=== PATIENT | male | born 1960 ===

== ENCOUNTER 2024-10-13 09:47 | Outpatient (REF) | payer OTHER, SELFPAY ==
--- NOTE | ~2024-10-13 | XR_ITS ---
EXAMINATION: XR KNEE 3 VIEWS RIGHT HISTORY: M25.561 - Pain in right knee COMPARISON: There are no prior studies available for comparison. FINDINGS: Standing AP views of both knees, and additional lateral and sunrise patellar views of the right knee are submitted. Osseous mineralization is normal. There is no fracture or dislocation. There is severe osteoarthritis of the medial and patellofemoral compartments of the right knee with joint space narrowing and osteophyte formation. The patient is status post left total knee arthroplasty. The soft tissues are unremarkable. There is no joint effusion. XR/XR knee RT 3V IMPRESSION: Severe osteoarthritis of the medial and patellofemoral compartments of the right knee. Electronically signed by: Noé Jimenez MD 10/16/2024 08:48 AM CHUY
== END 2024-10-13 09:48 | disposition home or self-care (01) ==
LOC: HO.HOSX 09:47
PROVIDERS: Visit Provider Orthopaedic Surgery
DX: M25.561 Pain in right knee (principal); M17.11 Unilateral primary osteoarthritis, right knee; Z96.652 Presence of left artificial knee joint
CPT/HCPCS: 20610; 73562; 99202; J0665; J1100; J2003

== ENCOUNTER 2024-10-13 09:47 | Outpatient (AMB) | payer OTHER, SELFPAY ==
[2024-10-13 10:21] VITALS: BMI 36.0
--- NOTE | 2024-10-13 10:21 | A.OFFVIS_ITS ---
Vital Signs 10/13/24 10:21 Height 6 ft 2.5 in Weight 284 lb BMI 36.0 Intake Visit Reasons: [employer]ER-Extensive Lt Shoulder C spine degenerative Intake Note: Sergio is a 64 year old -- hand dominant male who presents today as a new patient with complaints of right knee pain. Patient rpeorts that he has had ongoing pain in the right knee for about one year now. He denies any previous treatments. He explains that his pain is felt all the time and is affecting his sleep. Pain is worsened with acitiviy. He takes Celebrex and gabapentin which is not helping Allergies No Known Allergies Allergy (Verified 10/13/24 10:24) HPI HPI [employer]ER-Extensive Lt Shoulder C spine degenerative: Details: This is a 64-year-old gentleman with bilateral knee pain. He had a left total knee replacement about 5 years ago at an outside institution. This is bothering him because it swells repeatedly. He denies fevers and chills but states the swelling is a constant bother. He said it was drained once in the past but is unclear about whether infection has been ruled out or not. His primary complaint today however is his right knee pain. He has a severe antalgic gait pain with all activities. [facility] Surgical History (Updated 10/16/24 @ 10:39 by Huan Orozco MD) History of left knee replacement (~2003) Physical Exam Vital Signs: BMI result Body Mass Index 36.0 Extrem Other: On exam he is left knee incision with a large effusion. No erythema or warmth. 0-120 degrees with the effusion. On his right he has a varus right knee with sharp tenderness to palpation over the medial compartment. No effusion. Office Procedures Joint Inj/Aspir; Non-Pain Clin Joint Injection/Drain Details: Injected right knee 1 mL of Decadron and 3 mL 1% lidocaine and 3 mL of 0.25% Marcaine. Site was prepped using aseptic technique. Patient tolerated the procedure well. I aspirated the left knee. I obtained 50 mL of normal-appearing joint fluid Shoulders, Hips, Knees, Knee Large Joint Injection [id number]: Bilateral Knee Coding Procedure code (CPT) selection complete Results Reviewed Results Reviewed: I personally reviewed relevant radiographs. Left total knee and an expected postoperative position with no evidence of loosening or hardware complications. Right knee with severe medial and patellofemoral end-stage osteoarthritis. Assessment & Plan Assessment & Plan (1) Localized osteoarthritis of right knee: Code(s): M17.11 - Unilateral primary osteoarthritis, right knee Category: Medical Plan: I injected his right knee. He had a left knee replacement many years ago and there is a persistent effusion but not any evidence of infection. I do think he would benefit from right knee arthroplasty. He is unable to ambulate and his pain is not controlled. I am not sure his diabetes is controlled either but we will work him up for preoperative risk assessment. (2) History of left knee replacement: Onset Date: ~2003 Code(s): Z96.652 - Presence of left artificial knee joint Category: Surgical Plan: I aspirated a moderate volume of normal-appearing synovial fluid from the left total knee replacement. This was sent for a Synovasure. Orders: Orders XR knee RT 3V 10/13/24 M25.561 - Pain in right knee Coding Level of Care Code New Pt Level 4 (57848) Diagnoses Localized osteoarthritis of right knee M17.11 History of left knee replacement Z96.652 CPT Codes Shoulders, Hips, Knees, - Knee Large Joint Injection : Bilateral Knee ([id number])
--- OUTSIDE RECORDS SUMMARY | 2024-10-13 10:39 | XMS_ITS ---
[facility] Address [address] [place] [address] Care Team Providers Care Building Construction Engineer Name Role Phone Brendon LAUGHLIN, Kristie Primary Care Provider John Kruger Unavailable [phone] Allergies No Known Allergies REASON FOR VISIT At Risk Footcare, Painful Nail(s) aggravated by shoes and causing difficulty standing/walking, SkinProblem Medications Medication SIG (Take, Route, Frequency, Duration) Notes Start Date End Date Status Rosuvastatin Calcium 20 MG TAKE 1 TABLET BY MOUTH EVERY DAY Oral for 90 Days Active tiZANidine HCl 4 MG Oral for 30 Days Active Ibuprofen 600 MG Oral for 8 Days Active LORazepam 0.5 MG Oral for 2 Days Active Meloxicam 15 MG Oral for 30 Days Active Meloxicam 15 MG PLEASE SEE ATTACHED FOR DETAILED DIRECTIONS Oral for 30 Days Active Trulicity 0.75 MG/0.5ML PLEASE SEE ATTAC HED FOR DETAILED DIRECTIONS Subcutaneous for 28 Days Active hydroCHLOROthiazide 25 MG TAKE 1 TAB BY MOUTH DAILY. TAKE WITH LISINOPRIL 40MG.-STOP LIS/HCTZ 20/25 Oral for 90 Days Active amLODIPine Besylate 5 MG PLEASE SEE LORENZO CHED FOR DETAILED DIRECTIONS Oral for 90 Days Active Pantoprazole Sodium 40 MG TAKE 1 TABLET BY MOUTH EVERY DAY FOR 14 DAYS Oral for 14 Days Active Albuterol Sulfate HFA 108 (9 0 Base) MCG/ACT TAKE 2 PUFFS INHALATION 4 TIMES A DAY NEEDED FOR WHEEZING SPACE PUFFS 1 MINUTE APART. Inhalation for 25 Days Active Celecoxib 100 MG Oral for 90 Days Active amLODIPine Besylate 10 MG PLEASE SEE ATT ACHED FOR DETAILED DIRECTIONS Oral for 90 Days Active FreeStyle [place] Lite w/Device for 30 Days Active Cyanocobalamin 1000 MCG/ML Injection for 28 Days Active Gabapentin 600 MG Oral for 60 Days Active Cyanocobalamin 1000 MCG/ML Injection for 7 Days Active Budesonide-Formoterol Fumara te 160-4.5 MCG/ACT INHALE 2 PUFFS BY MOUTH TWICE DAILY FOR ASTHMA CONTROL Inhalation for 30 Days Active Ondansetron HCl 4 MG Oral for 5 Days Active Celecoxib 100 MG Oral for 60 Days Active Trulicity 1.5 MG/0.5ML Subcutaneous for 28 Days Active Trulicity 0.75 MG/0.5ML Subcutaneous for 28 Days Active BD Syringe Luer-Nichole 1 ML for 28 Days Active BD Disp Needle 25G X 1 for 28 Days Active Albuterol Sulfate (2.5 MG/3M L) 0.083% Inhalation for 18 Days Activ e Lidocaine 5 % External for 20 Days Active DULoxetine HCl 30 MG Oral for 90 Days Active Ammonium Lactate 12 % External for 30 Days Active Omeprazole 20 MG Oral for 90 Days Active FreeStyle Lite Test - USE TO TEST FASTIN G BLOOD SUGAR ONCE A DAY In Vitro for 50 Days Active Omeprazole 20 MG Oral for 90 Days Active Budesonide-Formoterol Fumara te 160-4.5 MCG/ACT Inhalation for 30 Days Ac tive FreeStyle Lancets - for 90 Days Active FreeStyle Lite Test - In Vitro for 50 Days Active Lisinopril 40 MG Oral for 90 Days Active metFORMIN HCl 1000 MG Oral for 90 Days Active Rosuvastatin Calcium 20 MG Oral for 90 Days Active Aspirin Low Dose 81 MG Oral for 90 Days Active Jardiance 10 MG Oral for 90 Days Active amLODIPine Besylate 10 MG Oral for 90 Days Active hydroCHLOROthiazide 25 MG Oral for 90 Days Active hydroCHLOROthiazide 25 MG Oral for 90 Days Active Albuterol Sulfate HFA 108 (9 0 Base) MCG/ACT Inhalation for 25 Days Acti ve Amitriptyline HCl 50 MG Oral for 90 Days Active Ciclopirox Olamine 0.77 % 1 application Externally Twice a day to skin of feet including between the toes for 30 days Active Trulicity 3 MG/0.5ML Subcutaneous for 28 Days Active Social History Tobacco Use: Social History Observation Description Date Details (start date - stop date) Never Smoker NA - NA Tobacco Control (Standard) Question Answer Notes Tobacco use: Nonsmoker AUDIT-C (Standard) Question Answer Notes Did you have a drink contain ing alcohol in the past year? Yes How often did you have six o r more drinks on one occasion in the past year? Declined to specify (0 point) How many drinks did you have on a typical day when you were drinking in the past year? Declined to specify (0 point) How often did you have a dri nk containing alcohol in the past year? Declined to specify (0 point) Points 0 Interpretation Negative Problems Problem Type SNOMED Code ICD Code Onset Dates Problem Status W/U Status Risk Notes Problem Type 2 diabetes mellitus with peripheral angiopathy (526890081) Type 2 diabetes mellitus with diabetic peripheral angiopathy without gangrene (E11.51) Active confirmed Q7(A), Q8(2B), Q9(1B,2C) Vital Signs Height 6ft 2in in 07/27/2024 Weight 288 lbs 07/27/2024 BMI 36.97 kg/m2 07/27/2024 Procedures Procedure Date Ordered Date Performed Result Body Sit e 01716-[id number] NAIL, 6 OR MORE 07/27/2024 N/A [id number] SKIN LESIONS, OVER 4 07/27/2024 N/A Encounters Encounter Location Date Provider Diagnosis [facility] [address] [address] 07/27/2024 Johncodey AppleTrena Type 2 diabetes mellitus with diabetic peripheral angiopathy without gangrene E11.51 ; Tinea unguium B35.1 ; Pain in right toe(s) M79.674 ; Pain in left toe(s) M79.675 and Tinea pedis of both feet B35.3 Assessments Encounter Date Diagnosis (ICD Code) Assessment Notes Treatment Notes Treatment Clinical Notes Section Notes 07/27/2024 Type 2 diabetes mellitus with diabetic peripheral angiopathy without gangrene (ICD-10 - E11.51) Q7(A), Q8(2B), Q9(1B,2C) 07/27/2024 Tinea unguium (ICD-10 - B35.1) 07/27/2024 Pain in right toe(s) (ICD-10 - M79.674) 07/27/2024 Pain in left toe(s) (ICD-10 - M79.675) 07/27/2024 Tinea pedis of both feet (ICD-10 - B35.3) Plan Of Treatment Medication Medication Name Sig Start Date Stop Date Notes Ciclopirox Olamine 0.77 % 1 application Externally Twice a day to skin of feet including between the toes for 30 days Pending Test Test Name Order Date [id number] NAIL, 6 OR MORE 07/27/2024 [id number] SKIN LESIONS, OVER 4 07/27/20 24 Next Appt Details Follow Up: 2 Months, Reason: Provider Name:John Albrecht , 10/30/2024 01:30:00 PM, [address], [address], [place], [address], Procedure Notes * Category Sub-Category Detail Notes Debride Nail 6-10 Nail debridement Due to the cl inical pathology outlined in the exam findings, performance of this nail treatment is medically necessary as its management by an unskilled/untrained nonprofessional would put this patients foot and overall health at risk. Therefore, debridement to affected nail(s), as described in exam ( TA, T1, T3, T4, T5, T6, T9), was performed exclusively by the physician of record to reduce/remove overall nail length, girth, thickness, subungual debris, and necrotic tissue, by manual and/or electrical means through the use of a nail nipper and/or dremel-type concrete grinder operator, to a more viable healthy nail plate or bed tissue 6-10 nails in total. Silver nitrate was used for any petechial bleeding as necessary. Definitive antifungal treatment options, both pharmaceutical and surgical, have been reviewed and discussed with the patient. The patient solely prefers the use of intermittent/as needed professional debridement services for their nail condition and understands the need for additional periodic treatments to maintain effectiveness in symptomatic relief - 84603 Keratoma Treatment Parring or Cutting o f Benign Hyperkeratotic Lesion(s) (-57) More than 4 Lesions - Due to the at risk nature of the patients medical condition as documented in the exam findings, performance of this keratoderma treatment is medically necessary as its management by an unskilled/untrained nonprofessional would put this patients foot and overall health at risk. Therefore, the benign hyperkeratotic lesions, ( 10) in total, locations as stated and described in the exam ( Medial plantar, IPJ, TA, Medial plantar, IPJ, T5, SUB MTH (s), 1, B/L, SUB MTH (s), 4, B/L, SUB MTH (s), 5, B/L, Plantar Heel(s), B/L), were pared, and/or cut utilizing a sterile 15 blade, tissue nippers, and/or power dremel instrumentation by the physician of record - 80788, Q8 Progress Notes * Sergio ORDONEZDOB: [birth year] (64 yo M)Acc No.[id number]:07/27/2024 Progress Notes Patient:?Sergio ORDONEZ Provider:?John Albrecht DPM :1960???Age:64 Y???Sex:Male Andrea e:07/27/2024 Address:[address] [place] [address] Pcp:Kristie Olivas MD Subjective: * Chief Complaints: * ???At Risk FootcarePainful N ail(s) aggravated by shoes and causing difficulty standing/walkingSkin Problem * HPI: ???At Risk footcare:?Pt States Last PCP Visit:?Date?05/31/2024 ???Skin problems:?Nature:?scaling , redness.?Location:?B/L .?Duration:?several days.?Course:?worse.? * ROS:?General/Constitutional:?Nausea?denies.?Vomiting?denies.?Hunger Thirst?denies.?Loss appetite?denies.?Chills?denies.?Fatigue?denies.?Fever?denies.?Night Sweats?denies.?Unexplained weight loss?denies.?Unexplained weight gain?denies.?HEENTM:?Dentures?denies.?Dizziness?denies.?Glasses/contacts?admits.?Retinopathy?de nies.?Blurred/double vision?denies.?TMJ?denies.?Discharge/drainage?denies.?Implants?denies.?Sore throat?denies.?Dental implants?denies.?Hard of hearing ?denies.?Difficulty chewing/swallowing/speaking?denies.?Nose bleeds?denies.?Sore mouth?denies.?Respiratory:?On Oxygen?denies.?Pneumonia/pleurisy?denies.?Bronchitis?denies.?Emphysema?denies.?C oughing?denies.?Cough blood?denies.?Shortness of breath?denies.?Shortness of breath with exertion?admits.?Wheezing?denies.?Cardiovascular:?Pacemaker?denies.?MVP?denies.?WPW?denies.?CHF?denies.?Heart attack?denies.?Septal defect?denies.?Rapid beat?denies.?Chest pain ?denies.?Atrial Fib.?denies.?Murmur/Palpitations?denies.?Gastrointestinal:?Hemorrhoids?denies.?Stomach/Abdominal pain?denies.?Dark blood stool?denies.?Irritable bowel ?denies.?Constipation?denies.?Diarrhea?denies.?Hematology:?Swelling?denies.?Clots?denies.?Varicose Veins?denies.?Bruising?denies.?Bleeding problem?denies.?Genitourinary:?Blood urine?denies.?Frequent/Painfu/urination/bladder control?denies.?Kidney stones?denies.?Infection (UTI)?denies.?Nephropathy?denies.?sex trans dis (STD)?denies.?Prostate?denies.?Musculoskeletal:?Hammertoes?admits.?Bunions?denies.?Back Pain?denies.?Muscle Cramps/ Resting?denies.?Muscle cramps / walking?denies.?Generalized aches and pains?denies.?Weakness?denies.?Integ.:?[place]?denies.?Scars?denies.?Corns/calluses?admits.?Ingrown nails?admits.?Painful nails?admits.?Open Sores?denies.?Rashes?denies.?Neurologic:?Difficulty sleeping?denies.?Brain disorder?denies.?Numbness?denies.?Balance trouble?denies.?Confusion?denies.?Fainting/blackouts?denies.?Tingling?denies.?Tr emors?denies.? * Medical History:? * Surgical History:?knee repla cement 2003 * Hospitalization/Major Diagno stic Procedure:?Denies Past Hospitalization * Family History:?Mother: mayra sanchez, diagnosed with Diabetic - NIDDM.?Father: , cancer, Foot problems, poor circulation, diagnosed with Family history of arthritis, Unspecified essential hypertension, Unspecified heart disease, Unspecified cerebral artery occlusion with cerebral infarction.? * Social History:?Tobacco Use:?Tobacco Control (Standard)?Tobacco use:?Nonsmoker ???Drugs/Alcohol:?Drugs?Have you used drugs other than those for medical reasons in the past 12 months??No ???Miscellaneous:?Marital status: Single. ???Drug/Alcohol:?AUDIT-C (Standard)?Did you have a drink containing alcohol in the past year??Yes ?How often did you have six or more drinks on one occasion in the past year??Declined to specify (0 point) ?How many drinks did you have on a typical day when you were drinking in the past year??Declined to specify (0 point) ?How often did you have a drink containing alcohol in the past year??Declined to specify (0 point) ?Points?0 ?Interpretation?Negative * Medications:?TakingTrulicity 3 MG/0.5ML Solution Auto-injector Subcutaneous Albuterol Sulfate HFA 108 (90 Base) MCG/ACT Aerosol Solution Inhalation Amitriptyline HCl 50 MG Tablet Oral amLODIPine Besylate 10 MG Tablet Oral hydroCHLOROthiazide 25 MG Tablet Oral hydroCHLOROthiazide 25 MG Tablet Oral Lisinopril 40 MG Tablet Oral metFORMIN HCl 1000 MG Tablet Oral Rosuvastatin Calcium 20 MG Tablet Oral Aspirin Low Dose 81 MG Tablet Delayed Release Oral Jardiance 10 MG Tablet Oral Budesonide-Formoterol Fumarate 160-4.5 MCG/ACT Aerosol Inhalation FreeStyle Lancets - Miscellaneous FreeStyle Lite Test - Strip In Vitro FreeStyle Lite Test - Strip USE TO TEST FASTING BLOOD SUGAR ONCE A DAY In Vitro Omeprazole 20 MG Capsule Delayed Release Oral Albuterol Sulfate (2.5 MG/3ML) 0.083% Nebulization Solution Inhalation Lidocaine 5 % Ointment External DULoxetine HCl 30 MG Capsule Delayed Release Particles Oral Ammonium Lactate 12 % Cream External Omeprazole 20 MG Capsule Delayed Release Oral Trulicity 1.5 MG/0.5ML Solution Auto-injector Subcutaneous Trulicity 0.75 MG/0.5ML Solution Auto-injector Subcutaneous BD Syringe Luer-Nichole 1 ML Miscellaneous BD Disp Needle 25G X 1 Miscellaneous Celecoxib 100 MG Capsule Oral Cyanocobalamin 1000 MCG/ML Solution Injection Gabapentin 600 MG Tablet Oral Cyanocobalamin 1000 MCG/ML Solution Injection Budesonide-Formoterol Fumarate 160-4.5 MCG/ACT Aerosol INHALE 2 PUFFS BY MOUTH TWICE DAILY FOR ASTHMA CONTROL Inhalation Ondansetron HCl 4 MG Tablet Oral Pantoprazole Sodium 40 MG Tablet Delayed Release TAKE 1 TABLET BY MOUTH EVERY DAY FOR 14 DAYS Oral Albuterol Sulfate HFA 108 (90 Base) MCG/ACT Aerosol Solution TAKE 2 PUFFS INHALATION 4 TIMES A DAY NEEDED FOR WHEEZING SPACE PUFFS 1 MINUTE APART. Inhalation Celecoxib 100 MG Capsule Oral amLODIPine Besylate 10 MG Tablet PLEASE SEE ATTACHED FOR DETAILED DIRECTIONS Oral FreeStyle [place] Lite w/Device Kit Meloxicam 15 MG Tablet Oral Meloxicam 15 MG Tablet PLEASE SEE ATTACHED FOR DETAILED DIRECTIONS Oral Trulicity 0.75 MG/0.5ML Solution Auto-injector PLEASE SEE ATTACHED FOR DETAILED DIRECTIONS Subcutaneous hydroCHLOROthiazide 25 MG Tablet TAKE 1 TAB BY MOUTH DAILY. TAKE WITH LISINOPRIL 40MG.-STOP LIS/HCTZ 20/25 Oral amLODIPine Besylate 5 MG Tablet PLEASE SEE ATTACHED FOR DETAILED DIRECTIONS Oral Rosuvastatin Calcium 20 MG Tablet TAKE 1 TABLET BY MOUTH EVERY DAY Oral tiZANidine HCl 4 MG Tablet Oral Ibuprofen 600 MG Tablet Oral LORazepam 0.5 MG Tablet Oral Taking Trulicity 3 MG/0.5ML Solution Auto-injector Subcutaneous Taking Albuterol Sulfate HFA 108 (90 Base) MCG/ACT Aerosol Solution Inhalation Taking Amitriptyline HCl 50 MG Tablet Oral Taking amLODIPine Besylate 10 MG Tablet Oral Taking hydroCHLOROthiazide 25 MG Tablet Oral Taking hydroCHLOROthiazide 25 MG Tablet Oral Taking Lisinopril 40 MG Tablet Oral Taking metFORMIN HCl 1000 MG Tablet Oral Taking Rosuvastatin Calcium 20 MG Tablet Oral Taking Aspirin Low Dose 81 MG Tablet Delayed Release Oral Taking Jardiance 10 MG Tablet Oral Taking Budesonide-Formoterol Fumarate 160-4.5 MCG/ACT Aerosol Inhalation Taking FreeStyle Lancets - Miscellaneous Taking FreeStyle Lite Test - Strip In Vitro Taking FreeStyle Lite Test - Strip USE TO TEST FASTING BLOOD SUGAR ONCE A DAY In Vitro Taking Omeprazole 20 MG Capsule Delayed Release Oral Taking Albuterol Sulfate (2.5 MG/3ML) 0.083% Nebulization Solution Inhalation Taking Lidocaine 5 % Ointment External Taking DULoxetine HCl 30 MG Capsule Delayed Release Particles Oral Taking Ammonium Lactate 12 % Cream External Taking Omeprazole 20 MG Capsule Delayed Release Oral Taking Trulicity 1.5 MG/0.5ML Solution Auto-injector Subcutaneous Taking Trulicity 0.75 MG/0.5ML Solution Auto-injector Subcutaneous Taking BD Syringe Luer-Nichole 1 ML Miscellaneous Taking BD Disp Needle 25G X 1 Miscellaneous Taking Celecoxib 100 MG Capsule Oral Taking Cyanocobalamin 1000 MCG/ML Solution Injection Taking Gabapentin 600 MG Tablet Oral Taking Cyanocobalamin 1000 MCG/ML Solution Injection Taking Budesonide-Formoterol Fumarate 160-4.5 MCG/ACT Aerosol INHALE 2 PUFFS BY MOUTH TWICE DAILY FOR ASTHMA CONTROL Inhalation Taking Ondansetron HCl 4 MG Tablet Oral Taking Pantoprazole Sodium 40 MG Tablet Delayed Release TAKE 1 TABLET BY MOUTH EVERY DAY FOR 14 DAYS Oral Taking Albuterol Sulfate HFA 108 (90 Base) MCG/ACT Aerosol Solution TAKE 2 PUFFS INHALATION 4 TIMES A DAY NEEDED FOR WHEEZING SPACE PUFFS 1 MINUTE APART. Inhalation Taking Celecoxib 100 MG Capsule Oral Taking amLODIPine Besylate 10 MG Tablet PLEASE SEE ATTACHED FOR DETAILED DIRECTIONS Oral Taking FreeStyle [place] Lite w/Device Kit Taking Meloxicam 15 MG Tablet Oral Taking Meloxicam 15 MG Tablet PLEASE SEE ATTACHED FOR DETAILED DIRECTIONS Oral Taking Trulicity 0.75 MG/0.5ML Solution Auto-injector PLEASE SEE ATTACHED FOR DETAILED DIRECTIONS Subcutaneous Taking hydroCHLOROthiazide 25 MG Tablet TAKE 1 TAB BY MOUTH DAILY. TAKE WITH LISINOPRIL 40MG.-STOP LIS/HCTZ 20/25 Oral Taking amLODIPine Besylate 5 MG Tablet PLEASE SEE ATTACHED FOR DETAILED DIRECTIONS Oral Taking Rosuvastatin Calcium 20 MG Tablet TAKE 1 TABLET BY MOUTH EVERY DAY Oral Taking tiZANidine HCl 4 MG Tablet Oral Taking Ibuprofen 600 MG Tablet Oral Taking LORazepam 0.5 MG Tablet Oral DiscontinuedmetFORMIN HCl 1000 MG Tablet TAKE 1 TABLET BY MOUTH 2 TIMES A DAY FOR DIABETES WITH MEALS Oral Medication List reviewed and reconciled with the patientDiscontinued metFORMIN HCl 1000 MG Tablet TAKE 1 TABLET BY MOUTH 2 TIMES A DAY FOR DIABETES WITH MEALS Oral Medication List reviewed and reconciled with the patient * Allergies:?N.K.D.A.yes[Aller gies Verified] Objective: * Vitals:?Ht: 6ft 2in, Wt:288, BMI:36.97, Shoe size: 11.5, Ht-cm: 187.96 cm, Wt- k.63 kg. * ???Past Orders: ???Lab:HEMOGLOBIN A1C (GLYCO HEMOGLOBIN) (Order Date - 07/27/2024) (Collection Date & Time - 05/16/2024 01:07 PM) ? Value Reference Range ?TOTAL HEMOGLOBIN (HGBA1C) 8.1 * Examination: ???Ophthalmology Referral: ?DIABETES EYE EXAM?Procedure Performed:?No ?Eye Exam not performed:?No reason specified ?Diabetic Retinopathy Screening:?No ?Retinal Screening Performed:?No?Vascular: ?DP PULSES (B):?0/4, RIGHT, 1/4, LEFT.?PT PULSES (B):? 0/4, B/L.?CAPILLARY FILL TIME:? delayed, all digits, B/L.?TROPHIC CONDITION-TEXTURE/ELASTICITY/TURGOR/HAIR GROWTH (B):? decreased, fragile, thin, shiny, with sparse to absent hair growth, B/L.?TEMPERTURE GRADIENT (C):? decreased, cool to cool, proximal to distal, B/L.?PIGMENTATION:?mottled, B/L.?EDEMA (C):?2/4, non-pitting, without aching pain, Leg(s), Ankle(s), B/L.?CLAUDICATION (C):?denies, B/L.?REST PAIN:?denies, B/L.?PARESTHESIA (C):?absent, B/L.?BURNING (C):?absent, B/L.?Nails: ?NAILS are:?Elongated, overgrown, dystrophic, lytic, greater than 3mm thick, discolored and friable with crumbly malodorous subungual debris, with pain on palpation, TA, T1, T3, T4, T5, T6, T9, all other nails not described with characteristics as possessing mycosis are elongated, overgrown, and dystrophic.?Dermatologic: ?SKIN FINDINGS:?Skin exam reveals Keratotic lesion(s) located at, Medial plantar, IPJ, TA, Medial plantar, IPJ, T5, SUB MTH (s), 1, B/L, SUB MTH (s), 4, B/L, SUB MTH (s), 5, B/L, Plantar Heel(s), B/L , Skin shows sign(s) of, erythema, scaling, in a moccasin fashion, no fissure(s) present, B/L.?Orthopedic: ?MUSCLE STRENGTH:?5/5 all groups in a symmetrical fashion, B/L.?DIGITAL DEFORMITIES:?Digital contracture, PIPJ, 2-5 B/L, incompl-reducible with WB, or to push-up test, no over, nor underlapping.?FOOTWEAR:?fair condition.?Neurological: ?SENSORY:?Neurological exam reveals intact sensorium, pain sensation normal, vibration sensation intact, pinprick sensation is normal in the lower extremities, 5.07 monofilament test performed at plantar aspects of 5 varied sites per foot shows sensation, normal, B/L, Pt denies, anesthesia, burning, paresthesia, tingling, B/L.?General Examination: ?GENERAL APPEARANCE:?Reveals a pleasant, alert, well nourished, well- developed, well hydrated individual, who demonstrates proper attention to hygiene/body habitus, and is in no acute distress, Pt serves as own historian for office visit today.?ORIENTED:?person, place, and time.?FOOT EXAM:?Lower Extremity Neurological Exam performed:?Yes ?Visual exam of foot performed:?Yes ?Date?07/27/2024 ?Footwear Evaluation?Footwear Evaluation performed:?Yes??? Assessment: * Assessment: 1.?Type 2 diabetes mellitus with diabetic peripheral angiopathy without gangrene - E11.51 (Primary)???Notes :Q7(A), Q8(2B), Q9(1B,2C)???2.?Tinea unguium - B35.1???3.?Pain in right toe(s) - M79.674???4.?Pain in left toe(s) - M79.675???5.?Tinea pedis of both feet - B35.3???Specify :Acute problem, Uncomplicated (3),Rx drug management (4)??? Plan: * Treatment: 2.?Tinea unguium?Procedure: [id number] NAIL, 6 OR MORE 3.?Tinea pedis of both feet? Start Ciclopirox Olamine Cream, 0.77 %, 1 application, Externally, Twice a day to skin of feet including between the toes, 30 days, 60, Refills 2.?? * Procedures:?Debride Nail 6-10:?Nail debridement?Due to the clinical pathology outlined in the exam findings, performance of this nail treatment is medically necessary as its management by an unskilled/untrained nonprofessional would put this patients foot and overall health at risk. Therefore, debridement to affected nail(s), as described in exam (?TA,?T1,?T3,?T4,?T5,?T6,?T9), was performed exclusively by the physician of record to reduce/remove overall nail length, girth, thickness, subungual debris, and necrotic tissue, by manual and/or electrical means through the use of a nail nipper and/or dremel-type concrete grinder operator, to a more viable healthy nail plate or bed tissue 6- 10 nails in total. Silver nitrate was used for any petechial bleeding as necessary. Definitive antifungal treatment options, both pharmaceutical and surgical, have been reviewed and discussed with the patient. The patient solely prefers the use of intermittent/as needed professional debridement services for their nail condition and understands the need for additional periodic treatments to maintain effectiveness in symptomatic relief - 74639.?Keratoma Treatment:?Parring or Cutting of Benign Hyperkeratotic Lesion(s)?(-57) More than 4 Lesions - Due to the at risk nature of the patients medical condition as documented in the exam findings, performance of this keratoderma treatment is medically necessary as its management by an unskilled/untrained nonprofessional would put this patients foot and overall health at risk. Therefore, the benign hyperkeratotic lesions, ( 10) in total, locations as stated and described in the exam (?Medial plantar,?IPJ,?TA,?Medial plantar,?IPJ,?T5,?SUB MTH (s),?1,?B/L,?SUB MTH (s),?4,?B/L,?SUB MTH (s),?5,?B/L,?Plantar Heel(s),?B/L), were pared, and/or cut utilizing a sterile 15 blade, tissue nippers, and/or power dremel instrumentation by the physician of record - 23953, Q8.? * Procedure Codes:?96207 DEBRI DE NAIL, 6 OR MORE, Modifiers: XS 23553 TRIM SKIN LESIONS, OVER 4, Modifiers: XS , Q8 * Preventive Medicine:? ??Counseling:?Discussion:?-03: Office or other outpatient visit for the evaluation and management of a new patient, which required a medically appropriate history and/or examination and LOW level of DECISION MAKING for: 1 STABLE ACUTE UNCOMPLICATED PROBLEM, 2 OR MORE MINOR PROBLEMS, OR 1 STABLE CHRONIC PROBLEM, THAT POSE(S) A LOW RISK FOR MORBIDITY/MORTALITY. The visit on the day of the encounter encompassed interpreting the data and educating the patient as to the nature of their condition, treatment options available according to their individual PMH, meds, allergies, and overall health/living conditions, as well as any potential risks or complications that may occur from a failure to adhere to, and participate in, the recommended course of therapy. The discussion included a complete verbal, and/or written explanation of the examination results, any x-rays taken, the proposed diagnosis, and outline of the treatment plan. A schedule for future care needs was also explained. The patient verbalized an understanding of the instructions at this time and agreed to be an active participant in their treatment. If the patient should think of any questions or concerns after the visit, I have encouraged the patient to call the office.?Consult:?The patient was counseled on the diagnosis, treatment options, and the need for a, Vascular Consult due to pedal risk of limb/life. Pt states has an appt tomorrow.?Tinea Pedis:?The patient was counseled on the diagnosis, potential etiologies, and treatment options for their skin condition. We discussed the risks and benefits of each option from performing no treatment, to utilizing OTC topical skin creams, prescription topical creams, customized compounded topical medications, and, if necessary, to utilize oral antifungal therapy. We discussed the advantages and disadvantages of each possible treatment and importance for adherence to all the recommended therapies for optimum success and avoid potential complications such as open sore/infection/possible hospitalization. We discussed the potential effectiveness of each topical preparation as well as each ones possible side effects and/or patient medication interactions if oral therapy is selected. Patient questions re: the advantages and disadvantages of each treatment choice, medication use/dosage, successful outcomes, and application consistency were reviewed and the patient verbalized that all answers were clearly understood. The patient was told they can help alleviate symptoms by utilizing moisture absorbant innersoles with activated charcoal and baking soda, applying antifungal sprays daily, aerating toe web spaces at night by putting cotton or lambs wool between the toes, alternating shoe gear daily if possible so they can dry out, changing socks at least once during the day, wearing well-ventilated shoes or sandals. The patient has decided to apply antifungal skin creams to their feet as directed. Rx was sent to their pharmacy at the time of visit.? ??Screening/Special Tests:?Fall Risk?Screening:?No falls in the past year ?FALLS: Screening for Future Fall Risk?Have you had any falls with injury in the past year??No * Follow Up:?2 Months * Images: * Sign off status: Completed true * Provider:?John Albrecht DPM Date:?2023 Generated for Liliana marcus/Sahara/Shai on:?10/13/2024 10:39 AM EST History and Physical Notes * HPI (History of Present Illness) Category Sub-Category Detail Notes Category Not es Skin problems Nature: scaling , redness Location: B/L Duration: several days Course: worse At Risk footcare Pt States Last PCP Visit: Date: 4 Examination Category Sub-Category Detail Notes Category Not es Neurological SENSORY: Neurological exa m reveals intact sensorium, pain sensation normal, vibration sensation intact, pinprick sensation is normal in the lower extremities, 5.07 monofilament test performed at plantar aspects of 5 varied sites per foot shows sensation, normal, B/L, Pt denies, anesthesia, burning, paresthesia, tingling, B/L Dermatologic SKIN FINDINGS: Skin exam reveal s Keratotic lesion(s) located at, Medial plantar, IPJ, TA, Medial plantar, IPJ, T5, SUB MTH (s), 1, B/L, SUB MTH (s), 4, B/L, SUB MTH (s), 5, B/L, Plantar Heel(s), B/L , Skin shows sign(s) of, erythema, scaling, in a moccasin fashion, no fissure(s) present, B/L Orthopedic FOOTWEAR: fair condition DIGITAL DEFORMITIES: Digital contracture , PIPJ, 2-5 B/L, incompl-reducible with WB, or to push-up test, no over, nor underlapping MUSCLE STRENGTH: 5/5 all groups in a symmetrical fashion, B/L General Examination GENERAL APPEARANCE: Reveals a pleasant, alert, well nourished, well-developed, well hydrated individual, who demonstrates proper attention to hygiene/body habitus, and is in no acute distress, Pt serves as own historian for office visit today FOOT EXAM: Lower Extremity Neurological Exa m performed:: Yes Visual exam of foot performed:: Yes Date: 07/27/2024 ORIENTED: person, place, and t jd Footwear Evaluation Footwear Evaluation performe d:: Yes Ophthalmology Referral DIABETES EYE EXAM Procedure Perform ed:: No Eye Exam not performed:: No reason speci fied Diabetic Retinopathy Screening:: No Retinal Screening Performed:: No Vascular DP PULSES (B): 0/4, RIGHT, 1/4, LEFT PT PULSES (B): 0/4, B/L CAPILLARY FILL TIME: delayed, all digits , B/L TEMPERTURE GRADIENT (C): decreased, cool to cool, proximal to distal, B/L TROPHIC CONDITION-TEXTURE/ELASTICITY/TURGOR/HAIR GROWTH (B): decreased, fragile, thin, shiny, with sp arse to absent hair growth, B/L EDEMA (C): 2/4, non-pitting, wi thout aching pain, Leg(s), Ankle(s), B/L CLAUDICATION (C): denies, B/L REST PAIN: denies, B/L PIGMENTATION: mottled, B/L PARESTHESIA (C): absent, B/L BURNING (C): absent, B/L Nails NAILS are: Elongated, overg rown, dystrophic, lytic, greater than 3mm thick, discolored and friable with crumbly malodorous subungual debris, with pain on palpation, TA, T1, T3, T4, T5, T6, T9, all other nails not described with characteristics as possessing mycosis are elongated, overgrown, and dystrophic
--- OUTSIDE RECORDS SUMMARY | 2024-10-13 10:39 | XMS_ITS | Patient Health Record ---
Author Organization [facility] Address [address] [facility] [place] [address] Care Team Providers Care Silhouette Artist Name Role Phone Brendon LAUGHLIN, Kristie Primary Care Provider John Kruger Unavailable [phone] Allergies No Known Allergies Results Component Value Reference Range Notes HEMOGLOBIN A1C (GLYCOHEMOGLO BIN) Reviewed date:07/27/2024 01:08:54 PM Interpretation: Performing Lab: Notes/Report: TOTAL HEMOGLOBIN (HGBA1C) 8.1 Reason For Referral No Information Medications Medication SIG (Take, Route, Frequency, Duration) Notes Start Date End Date Status FreeStyle Lite Test - USE TO TEST FASTIN G BLOOD SUGAR ONCE A DAY In Vitro for 50 Days Active Meloxicam 15 MG Oral for 30 Days Active Omeprazole 20 MG Oral for 90 Days Active Meloxicam 15 MG PLEASE SEE ATTACHED FOR DETAILED DIRECTIONS Oral for 30 Days Active Albuterol Sulfate (2.5 MG/3M L) 0.083% Inhalation for 18 Days Activ e Trulicity 0.75 MG/0.5ML PLEASE SEE ATTAC HED FOR DETAILED DIRECTIONS Subcutaneous for 28 Days Active Lidocaine 5 % External for 20 Days Active hydroCHLOROthiazide 25 MG TAKE 1 TAB BY MOUTH DAILY. TAKE WITH LISINOPRIL 40MG.-STOP LIS/HCTZ 20/25 Oral for 90 Days Active DULoxetine HCl 30 MG Oral for 90 Days Active amLODIPine Besylate 5 MG PLEASE SEE LORENZO CHED FOR DETAILED DIRECTIONS Oral for 90 Days Active Ammonium Lactate 12 % External for 30 Days Active Rosuvastatin Calcium 20 MG TAKE 1 TABLET BY MOUTH EVERY DAY Oral for 90 Days Active Omeprazole 20 MG Oral for 90 Days Active Trulicity 1.5 MG/0.5ML Subcutaneous for 28 Days Active Ciclopirox Olamine 0.77 % 1 application Externally Twice a day to skin of feet including between the toes for 30 days Active Trulicity 3 MG/0.5ML Subcutaneous for 28 Days Active Albuterol Sulfate HFA 108 (9 0 Base) MCG/ACT Inhalation for 25 Days Acti ve tiZANidine HCl 4 MG Oral for 30 Days Active Ibuprofen 600 MG Oral for 8 Days Active Trulicity 0.75 MG/0.5ML Subcutaneous for 28 Days Active LORazepam 0.5 MG Oral for 2 Days Active BD Syringe Luer-Nichole 1 ML for 28 Days Active Amitriptyline HCl 50 MG Oral for 90 Days Active BD Disp Needle 25G X 1 for 28 Days Active amLODIPine Besylate 10 MG Oral for 90 Days Active Celecoxib 100 MG Oral for 60 Days Active hydroCHLOROthiazide 25 MG Oral for 90 Days Active Cyanocobalamin 1000 MCG/ML Injection for 28 Days Active hydroCHLOROthiazide 25 MG Oral for 90 Days Active Gabapentin 600 MG Oral for 60 Days Active Lisinopril 40 MG Oral for 90 Days Active Cyanocobalamin 1000 MCG/ML Injection for 7 Days Active metFORMIN HCl 1000 MG Oral for 90 Days Active Budesonide-Formoterol Fumara te 160-4.5 MCG/ACT INHALE 2 PUFFS BY MOUTH TWICE DAILY FOR ASTHMA CONTROL Inhalation for 30 Days Active Rosuvastatin Calcium 20 MG Oral for 90 Days Active Ondansetron HCl 4 MG Oral for 5 Days Active Aspirin Low Dose 81 MG Oral for 90 Days Active Pantoprazole Sodium 40 MG TAKE 1 TABLET BY MOUTH EVERY DAY FOR 14 DAYS Oral for 14 Days Active Jardiance 10 MG Oral for 90 Days Active Budesonide-Formoterol Fumara te 160-4.5 MCG/ACT Inhalation for 30 Days Ac tive Albuterol Sulfate HFA 108 (9 0 Base) MCG/ACT TAKE 2 PUFFS INHALATION 4 TIMES A DAY NEEDED FOR WHEEZING SPACE PUFFS 1 MINUTE APART. Inhalation for 25 Days Active Celecoxib 100 MG Oral for 90 Days Active FreeStyle Lancets - for 90 Days Active amLODIPine Besylate 10 MG PLEASE SEE ATT ACHED FOR DETAILED DIRECTIONS Oral for 90 Days Active FreeStyle Lite Test - In Vitro for 50 Days Active FreeStyle [place] Lite w/Device for 30 Days Active Social History Tobacco Use: Social [...] Type 2 diabetes mellitus with peripheral angiopathy (261243964) Type 2 diabetes mellitus with diabetic peripheral angiopathy without gangrene (E11.51) Active confirmed Q7(A), Q8(2B), Q9(1B,2C) Vital Signs Height 6ft 2in in 07/27/2024 Weight 288 lbs 07/27/2024 BMI 36.97 kg/m2 07/27/2024 Procedures Procedure Date Ordered Date Performed Result Body Sit e 03434-[id number] NAIL, 6 OR MORE 07/27/2024 N/A [id number] SKIN LESIONS, OVER 4 07/27/2024 N/A Encounters Encounter Location Date Provider Diagnosis [facility] [address] [address] 07/27/2024 John Albrecht Type 2 diabetes mellitus with diabetic peripheral [...] feet (ICD-10 - B35.3) Plan Of Treatment Pending Test Test Name Order Date [id number] NAIL, 6 OR MORE 07/27/2024 [id number] SKIN LESIONS, OVER 4 07/27/20 24 Next Appt Details Provider Name:John Albrecht , 10/30/2024 01:30:00 PM, [address], [address], [place], [address], Insurance Providers Payer Name Payer Address Payer Phone Subscriber Number Group Number Insured Name Patient Relationship to Insured Coverage Start Date Coverage End Date [facility] [employer] Claims [address] [place] [id number] Sergio Ordonez Self - patient is the insured Medical (General) History Medical History History ICD Code Arthritis Back,Hip,and Knee pain Diabetic High Blood Pressure Chicken pox Surgical History Surgery Date(Month/Year) knee replacement 2003
== END 2024-10-13 12:23 | disposition home or self-care (01) ==
PROVIDERS: Visit Provider Orthopaedic Surgery
DX: M17.11 Unilateral primary osteoarthritis, right knee (principal); Z96.652 Presence of left artificial knee joint
CPT/HCPCS: 20610; 99204

== ENCOUNTER → 2024-10-13 10:47 | Outpatient (BNV) | payer OTHER, SELFPAY | PROVIDERS: Visit Provider Radiology Diagnostic Radiology | DX: M17.11 Unilateral primary osteoarthritis, right knee (principal) | CPT/HCPCS: 73562 ==

== ENCOUNTER 2025-06-11 14:07 | Outpatient (AMB) | payer OTHER, SELFPAY ==
--- OUTSIDE RECORDS SUMMARY | 2024-10-30 09:30 | XMS_ITS ---
Author Organization [facility] Address [address] [facility] [place] [address] Care Team Providers Care Coremaker Bench Name Role Phone Brendon LAUGHLIN, Kristie Primary Care Provider John Kruger Unavailable [phone] Medications Medication SIG (Take, Route, Frequency, Duration) Notes Start Date End Date Status Ciclopirox Olamine 0.77 % 1 application Externally Twice a day to skin of feet including between the toes; Duration: 30 days Active LORazepam 0.5 MG Oral; Duration: 2 Days Active Ibuprofen 600 MG Oral; Duration: 8 Days Active tiZANidine HCl 4 MG Oral; Duration: 30 Days Active Rosuvastatin Calcium 20 MG TAKE 1 TABLET BY MOUTH EVERY DAY Oral; Duration: 90 Days Active hydroCHLOROthiazide 25 MG TAKE 1 TAB BY MOUTH DAILY. TAKE WITH LISINOPRIL 40MG.-STOP LIS/HCTZ 20/25 Oral; Duration: 90 Days Active Trulicity 0.75 MG/0.5ML PLEASE SEE ATTAC HED FOR DETAILED DIRECTIONS Subcutaneous; Duration: 28 Days Active Meloxicam 15 MG PLEASE SEE ATTACHED FOR DETAILED DIRECTIONS Oral; Duration: 30 Days Active Meloxicam 15 MG Oral; Duration: 30 Days Active amLODIPine Besylate 5 MG PLEASE SEE LORENZO CHED FOR DETAILED DIRECTIONS Oral; Duration: 90 Days Active FreeStyle [place] Lite w/Device ; Duration: 30 Days Active amLODIPine Besylate 10 MG PLEASE SEE ATT ACHED FOR DETAILED DIRECTIONS Oral; Duration: 90 Days Active Celecoxib 100 MG Oral; Duration: 90 Days Active Albuterol Sulfate HFA 108 (9 0 Base) MCG/ACT TAKE 2 PUFFS INHALATION 4 TIMES A DAY NEEDED FOR WHEEZING SPACE PUFFS 1 MINUTE APART. Inhalation; Duration: 25 Days Active Pantoprazole Sodium 40 MG TAKE 1 TABLET BY MOUTH EVERY DAY FOR 14 DAYS Oral; Duration: 14 Days Active Cyanocobalamin 1000 MCG/ML Injection; Du ration: 7 Days Active Gabapentin 600 MG Oral; Duration: 60 Days Active Cyanocobalamin 1000 MCG/ML Injection; Du ration: 28 Days Active Ondansetron HCl 4 MG Oral; Duration: 5 Days Active Budesonide-Formoterol Fumara te 160-4.5 MCG/ACT INHALE 2 PUFFS BY MOUTH TWICE DAILY FOR ASTHMA CONTROL Inhalation; Duration: 30 Days Active Celecoxib 100 MG Oral; Duration: 60 Days Active BD Disp Needle 25G X 1 ; Duration: 28 Days Active BD Syringe Luer-Nichole 1 ML ; Duration: 28 Days Active Trulicity 0.75 MG/0.5ML Subcutaneous; Duration: 28 Days Active Trulicity 1.5 MG/0.5ML Subcutaneous; Duration: 28 Days Active Lidocaine 5 % External; Duration: 20 Days Active Albuterol Sulfate (2.5 MG/3M L) 0.083% Inhalation; Duration: 18 Days Active Omeprazole 20 MG Oral; Duration: 90 Days Active Ammonium Lactate 12 % External; Duration : 30 Days Active DULoxetine HCl 30 MG Oral; Duration: 90 Days Active Omeprazole 20 MG Oral; Duration: 90 Days Active FreeStyle Lite Test - USE TO TEST FASTIN G BLOOD SUGAR ONCE A DAY In Vitro; Duration: 50 Days Active FreeStyle Lite Test - In Vitro; Duration : 50 Days Active FreeStyle Lancets - ; Duration: 90 Days Active Budesonide-Formoterol Fumara te 160-4.5 MCG/ACT Inhalation; Duration: 30 Days Active Lisinopril 40 MG Oral; Duration: 90 Days Active Jardiance 10 MG Oral; Duration: 90 Days Active Aspirin Low Dose 81 MG Oral; Duration: 9 0 Days Active Rosuvastatin Calcium 20 MG Oral; Duratio n: 90 Days Active metFORMIN HCl 1000 MG Oral; Duration: 90 Days Active hydroCHLOROthiazide 25 MG Oral; Duration : 90 Days Active hydroCHLOROthiazide 25 MG Oral; Duration : 90 Days Active amLODIPine Besylate 10 MG Oral; Duration : 90 Days Active Amitriptyline HCl 50 MG Oral; Duration: 90 Days Active Albuterol Sulfate HFA 108 (9 0 Base) MCG/ACT Inhalation; Duration: 25 Days Active Trulicity 3 MG/0.5ML Subcutaneous; Duration: 28 Days Active Encounters Encounter Location Date Provider Diagnosis [facility] [address] [facility] [address] [place] [address] 10/30/2024 John Albrecht Plan Of Treatment No Information Progress Notes * Sergio HANSENDOB: [birth year] (64 yo M)Acc No.[id number]:10/30/2024 Progress Note Patient: Sergio CONTEH Provider: Betty Albrecht DPM :1960 A ge:64 Y S ex:Male Date:10/30/2024 Address:[address] [place] [address], [address], [facility] Pcp:Kristie Olivas MD Subjective: * Chief Complaints: * * Medical History: * Medications: T aking Trulicity 3 MG/0.5ML Solution Auto-injector Subcutaneous , Taking Albuterol Sulfate HFA 108 (90 Base) MCG/ACT Aerosol Solution Inhalation , Taking Amitriptyline HCl 50 MG Tablet Oral , Taking amLODIPine Besylate 10 MG Tablet Oral , Taking hydroCHLOROthiazide 25 MG Tablet Oral , Taking hydroCHLOROthiazide 25 MG Tablet Oral , Taking Lisinopril 40 MG Tablet Oral , Taking metFORMIN HCl 1000 MG Tablet Oral , Taking Rosuvastatin Calcium 20 MG Tablet Oral , Taking Aspirin Low Dose 81 MG Tablet Delayed Release Oral , Taking Jardiance 10 MG Tablet Oral , Taking Budesonide-Formoterol Fumarate 160-4.5 MCG/ACT Aerosol Inhalation , Taking FreeStyle Lancets - Miscellaneous , Taking FreeStyle Lite Test - Strip In Vitro , Taking FreeStyle Lite Test - Strip USE TO TEST FASTING BLOOD SUGAR ONCE A DAY In Vitro , Taking Omeprazole 20 MG Capsule Delayed Release Oral , Taking Albuterol Sulfate (2.5 MG/3ML) 0.083% Nebulization Solution Inhalation , Taking Lidocaine 5 % Ointment External , Taking DULoxetine HCl 30 MG Capsule Delayed Release Particles Oral , Taking Ammonium Lactate 12 % Cream External , Taking Omeprazole 20 MG Capsule Delayed Release Oral , Taking Trulicity 1.5 MG/0.5ML Solution Auto-injector Subcutaneous , Taking Trulicity 0.75 MG/0.5ML Solution Auto-injector Subcutaneous , Taking BD Syringe Luer-Nichole 1 ML Miscellaneous , Taking BD Disp Needle 25G X 1 Miscellaneous , Taking Celecoxib 100 MG Capsule Oral , Taking Cyanocobalamin 1000 MCG/ML Solution Injection , Taking Gabapentin 600 MG Tablet Oral , Taking Cyanocobalamin 1000 MCG/ML Solution Injection , Taking Budesonide-Formoterol Fumarate 160-4.5 MCG/ACT Aerosol INHALE 2 PUFFS BY MOUTH TWICE DAILY FOR ASTHMA CONTROL Inhalation , Taking Ondansetron HCl 4 MG Tablet Oral , Taking Pantoprazole Sodium 40 MG Tablet Delayed Release TAKE 1 TABLET BY MOUTH EVERY DAY FOR 14 DAYS Oral , Taking Albuterol Sulfate HFA 108 (90 Base) MCG/ACT Aerosol Solution TAKE 2 PUFFS INHALATION 4 TIMES A DAY NEEDED FOR WHEEZING SPACE PUFFS 1 MINUTE APART. Inhalation , Taking Celecoxib 100 MG Capsule Oral , Taking amLODIPine Besylate 10 MG Tablet PLEASE SEE ATTACHED FOR DETAILED DIRECTIONS Oral , Taking [employer] [place] [employer] [place] Lite w/Device Kit , Taking Meloxicam 15 MG Tablet Oral , Taking Meloxicam 15 MG Tablet PLEASE SEE ATTACHED FOR DETAILED DIRECTIONS Oral , Taking Trulicity 0.75 MG/0.5ML Solution Auto-injector PLEASE SEE ATTACHED FOR DETAILED DIRECTIONS Subcutaneous , Taking hydroCHLOROthiazide 25 MG Tablet TAKE 1 TAB BY MOUTH DAILY. TAKE WITH LISINOPRIL 40MG.-STOP LIS/HCTZ 20/25 Oral , Taking amLODIPine Besylate 5 MG Tablet PLEASE SEE ATTACHED FOR DETAILED DIRECTIONS Oral , Taking Rosuvastatin Calcium 20 MG Tablet TAKE 1 TABLET BY MOUTH EVERY DAY Oral , Taking tiZANidine HCl 4 MG Tablet Oral , Taking Ibuprofen 600 MG Tablet Oral , Taking LORazepam 0.5 MG Tablet Oral , Taking Ciclopirox Olamine 0.77 % Cream 1 application Externally Twice a day to skin of feet including between the toes Objective: * Vitals: Assessment: Plan: * Treatment: * Images: * The named appointment provid er may or may not be the originator of this progress note, and it is not deemed complete until electronically signed by the appointment provider. Sign off status: Pending * Provider: Betty Albrecht DPM Date: 0 10/30/2024 Generated for Liliana marcus/Keith on: 05:45 PM EDT
--- NOTE | 2025-06-11 14:09 | MHC.OFFVIS ---
Intake Visit Reasons: OV - Discuss Right TKA Intake Note: Sergio is a 64 year old male who presents today for a follow up of his Right Knee OA, to discuss possible TKA. Patient cancelled his previously scheduled Right TKA. Allergies No Known Allergies Allergy (Verified 06/11/25 14:10) HPI HPI OV - Discuss Right TKA: Details: This is a 62-year-old gentleman who comes in today for follow up for right knee osteoarthritis. He has severe right knee osteoarthritis. He had a left knee replacement at outside institution and had some difficulty with swelling and pain postoperatively but has been stable and doing well. He states he had it aspirated at the institution which was performed but that was negative and he has had no problems in the last 6 months. Currently he he continues to have difficulty with his right knee. He walks with a limp. He states pain bothers him constantly decrease the quality of his life. I injected his knee about 8 months ago which was helpful for a few months. [facility] Surgical History (Updated 10/16/24 @ 10:39 by Huan Orozco MD) History of left knee replacement (~2003) Physical Exam Const General: cooperative, healthy appearing, no acute distress, well developed and alert HEENT Head: Yes normal to inspection, Yes normocephalic and Yes atraumatic Mouth: moist mucous membranes Eyes General: appearance normal, both eyes and all related structures EOM: EOMs intact bilaterally Chest Other: no audible wheezing. Resp Other: No audible wheezing Effort & Inspection: normal respiratory effort Cardio Other: Radial pulse palpable with no rythmic abnormalities Back/Spine/Pelvis Cervical Spine: normal cervical lordosis Skin General skin exam: no rashes or lesions noted Neuro General: no focal motor deficits Extrem Other: Right knee with marked tenderness to palpation medial joint line. Varus malalignment. Positive gait antalgia. 7-125 degrees of motion Psych Appearance: grossly normal and well kempt Mental Status: mental status grossly normal Speech and movement: Normal speech and movement present Affect: normal affect Attitude: cooperative Assessment & Plan Assessment & Plan (1) Localized osteoarthritis of right knee: Code(s): M17.11 - Unilateral primary osteoarthritis, right knee Category: Medical Plan: This is a 64-year-old gentleman with severe osteoarthritis of the right knee. He walks with a limp. He can not get through his day without severe pain. He does not sleep well. He is diabetic but states his sugars are well controlled. We have discussed arthroplasty in the past and he has gone so far as the scheduled but had to cancel it because of personal reasons. He would like to reschedule his knee replacement surgery. I think, from an orthopedic standpoint, this is reasonable. Obviously we have to clarify his hemoglobin A1c but he is on what are now in losing weight and appears healthy. I did discuss knee replacement surgery. Particularly I discussed the risks of infection, fracture, need for further surgery, stiffness as well as medical complications associated with surgery such as blood clots, organ dysfunction and he expressed understanding. I answered his questions to the best of my abilities. We will proceed forward with scheduling and preoperative clearance. Coding Level of Care Code Est Pt Level 4 (65391) Diagnoses Localized osteoarthritis of right knee M17.11
--- OUTSIDE RECORDS SUMMARY | 2025-06-11 17:46 | XMS_ITS | Clinical Summary ---
Author Organization [facility] Address [address] [place] [address] Phone Care Team Providers Care Motion Graphics Designer Name Role Phone Kristie Olivas MD Primary Care Provider [phone] Allergies No known active allergies Medications albuterol 2.5 mg /3 mL (0.083 %) nebulizer solution Take 3 mL (2.5 mg total) by nebulization every 6 (six) hours if needed for wheezing or shortness of breath. Active amitriptyline (ELAVIL) 50 mg tablet Take 1 tablet (50 mg total) by mouth at bedtime. 4 Active amLODIPine (NORVASC) 10 mg tablet Take 1 tablet (10 mg total) by mouth 1 (one) time each day. 4 Active aspirin 81 mg EC tablet Take 1 tablet (81 mg total) by mouth at bedtime. 5 Active cyanocobalamin (VITAMIN B-12) 1,000 mcg/mL injection 1 mL (1,000 mcg total). 5 Active DULoxetine (CYMBALTA) [address] capsule Take 1 capsule (30 mg total) by mouth 1 (one) time each day. 5 Active empagliflozin (JARDIANCE) 10 mg tablet Take 1 tablet (10 mg total) by mouth 1 (one) time each day in the morning. 4 Active hydroCHLOROthia zide (HYDRODIURIL) 25 mg tablet Take 1 tablet (25 mg total) by mouth 1 (one) time each day. 4 Active lisinopril (PRINIVIL,ZESTR IL) 40 mg tablet Take 1 tablet (40 mg total) by mouth 1 (one) time each day. 4 Active metFORMIN (GLUCOPHAGE) 1,000 mg tablet Take 1 tablet (1,000 mg total) by mouth 2 (two) times a day with meals. 4 Active omeprazole (PriLOSEC) [address] capsule Take 1 capsule (20 mg total) by mouth 1 (one) time each day. 5 Active rosuvastatin (CRESTOR) 20 mg tablet Take 1 tablet (20 mg total) by mouth 1 (one) time each day. 4 Active Mounjaro 2.5 mg/0.5 mL injection Inject 0.5 mL (2.5 mg total) under the skin every 7 (seven) days. TAKE ON Tuesdays 5 Active gabapentin (NEURONTIN) 300 mg capsuleIndicati ons:neuropathic pain Take 2 capsules (600 mg total) by mouth 2 (two) times a day if needed (MODERATE PAIN). Active albuterol HFA (PROAIR HFA ; PROVENTIL HFA ; VENTOLIN HFA) 90 mcg/actuation inhaler Inhale 2 puffs by mouth every 4 (four) hours if needed for wheezing or shortness of breath. 6.7 g 5 Active budesonide-form oteroL (SYMBICORT) 160-4.5 mcg/actuation inhaler Inhale 2 puffs by mouth 2 (two) times a day. 5 Active ipratropium (ATROVENT) 21 mcg (0.03 %) nasal spray Administer 1 spray into affected nostril(s) at bedtime. 5 Active Active Problems Problem Noted Date Diagnosed Date Acute hypoxic respiratory fa ilure ([facility] V24, [facility] V28) 04/02/2025 Acute hypoxemic respiratory failure ([facility] V24, [facility] V28) 11/29/2024 Encounters Date Type Department Care Team Description 04/02/2025 11:04 AM EDT - 04/04/2025 5:03 PM EDT Hospital Encounter [facility] [address] [place] [address] Patricia Gaspar MD Kela, Kashyap Devendrabhai, MD Acute hypoxic respiratory failure ([facility] [place]24, [facility] V28) (Primary Dx); Shortness of breath; Acute hypercapnic respiratory failure ([facility] V24, [facility] V28); Exacerbation of asthma, unspecified asthma severity, unspecified whether persistent Discharge Disposition: Home or Self Care 03/31/2025 9:25 PM EDT - 03/31/2025 9:58 PM EDT Emergency [facility] Emergency [address] [place] [address] Pneumonia of right lower lobe due to infectious organism (Primary Dx) Discharge Disposition: Home or Self Care from Last 3 Months Medical History Medical History Date Comments Hypertension Diabetes mellitus ([facility] V24, [facility] V28) Asthma Social History Tobacco Use Types Packs/Day Years Used Date Smoking Tobacco: Former Cigarettes Smokeless Tobacco: Never Tobacco Cessation:Counseling Given: Not Answered Interpersonal Safety Answer Date Record ed Physical Abuse Unrecognized value 04/02/2025 Verbal Abuse Unrecognized value 04/02/2025 Sex and Gender Information Value Date Recorded Sex Assigned at Male 10/26/2024 8:05 AM EDT Legal Sex Male 3:09 PM EST Gender Identity Male 10/26/2024 8:05 AM EDT Sexual Orientation Straight 10/26/2024 8: 05 AM EDT Obstetrics History Last Filed Vital Signs Vital Sign Reading Time Taken Comments Blood Pressure 148/87 04/04/2025 12:03 PM EDT Pulse 55 04/04/2025 12:03 PM EDT Temperature 36.2 C (97.2 F) 04/04/2025 12:03 PM EDT Respiratory Rate 17 04/04/2025 12:03 PM EDT Oxygen Saturation 96% 04/04/2025 12:03 PM EDT Inhaled Oxygen Concentration - - Weight 129 kg (285 lb) 04/02/2025 11:00 AM EDT Height 190.5 cm (6' 3 ) 04/02/2025 11:00 AM EDT Body Mass Index 35.62 04/02/2025 11:00 AM EDT Plan of Treatment Health Maintenance Due Date Last Done Comments Colorectal Cancer Screening: Colonoscopy 1962 Diabetes: Annual Foot Exam 1972 Diabetes: Annual Retina Eye Exam 1972 RSV Immunization Adult Patients (1 - Risk 50-74 years 1-dose series) 2012 Zoster Vaccines (1 of 2) 2012 Cholesterol Screening (Lipid Panel) 07/15/2022 HIV Screening 07/15/2022 Hepatitis C Screening 07/15/2022 Medicare Annual Wellness Visit 07/15/2022 Social Influencers of Health Screening 07/15/2022 Depression Screening 08/16/2024 Diabetes: Annual Urine Albumin-Creatinine Ratio (uACR) 10/26/2024 Diabetes: Blood Sugar Control Test (HGBA1C) 10/26/2024 COVID-19 Vaccine ( season) 2025 09/08/2023, 08/05/2021, 11/27/2020, Additional history exists Influenza Vaccine (#1) 2025 , 06/10/2022, 05/25/2018, Additional history exists Diabetes: Annual GFR (Glomerular Filtration Rate) 04/04/2026 04/04/2025, 04/03/2025, 04/02/2025, Additional history exists Hypertension/CHF/CAD Annual BMP Blood Test 04/04/2026 04/04/2025, 04/03/2025, 04/02/2025, Additional history exists DTaP,Tdap,and Td Vaccines (3 - Td or Tdap) 06/22/2029 06/22/2019, 08/21/2009 Pneumococcal Vaccine: 50+ Years Completed 09/08/2023, 11/24/2011 HIB Vaccines Aged Out No longer eligi ble based on patient's age to complete this topic HPV Vaccines Aged Out No longer eligi ble based on patient's age to complete this topic Hepatitis A Vaccines Aged Out No long er eligible based on patient's age to complete this topic Hepatitis B Vaccines Aged Out No long er eligible based on patient's age to complete this topic IPV Vaccines Aged Out No longer eligi ble based on patient's age to complete this topic MMR Vaccines Aged Out No longer eligi ble based on patient's age to complete this topic Meningococcal ACWY Vaccine Aged Out N o longer eligible based on patient's age to complete this topic Meningococcal B Vaccine Aged Out No l onger eligible based on patient's age to complete this topic RSV Immunization Patients Under 20 months Aged Out No longer eligible based on patient's age to complete this topic Varicella Vaccines Aged Out No longer eligible based on patient's age to complete this topic Procedures Procedure Name Priority Date/Time Associated Diagnosis Comments POCT GLUCOSE BLOOD Routine 04/04/2025 12 :03 PM EDT POCT GLUCOSE BLOOD Routine 04/04/2025 8: 32 AM EDT MAGNESIUM Routine 04/04/2025 5:59 AM EDT BASIC METABOLIC PANEL Routine 04/04/2025 5:59 AM EDT COMPLETE BLOOD COUNT Routine 04/04/2025 5:59 AM EDT PHOSPHORUS Routine 04/04/2025 5:59 AM EDT POCT GLUCOSE BLOOD Routine 04/04/2025 4: 03 AM EDT POCT GLUCOSE BLOOD Routine 04/04/2025 12 :11 AM EDT POCT GLUCOSE BLOOD Routine 04/03/2025 10 :24 PM EDT POCT GLUCOSE BLOOD Routine 04/03/2025 8: 38 PM EDT POCT GLUCOSE BLOOD Routine 04/03/2025 3: 34 PM EDT POCT GLUCOSE BLOOD Routine 04/03/2025 12 :00 PM EDT VENOUS BLOOD GAS Timed 04/03/2025 8:22 AM EDT POCT GLUCOSE BLOOD Routine 04/03/2025 8: 03 AM EDT STREPTOCOCCUS PNEUMONIAE ANTIBODIES, IGG, 23 SEROTYPES Routine 04/03/2025 4:03 AM EDT COMPLETE BLOOD COUNT Routine 04/03/2025 4:03 AM EDT BASIC METABOLIC PANEL Routine 04/03/2025 4:03 AM EDT VENOUS BLOOD GAS Timed 04/03/2025 4:03 AM EDT ECG ANNOTATED 04/03/2025 VENOUS BLOOD GAS Timed 04/02/2025 11:5 0 PM EDT POCT GLUCOSE BLOOD Routine 04/02/2025 10 :11 PM EDT VENOUS BLOOD GAS Timed 04/02/2025 7:57 PM EDT DUMONT URINE CULTURE TUBE Routine 04/02/2025 5:14 PM EDT URINALYSIS WITH REFLEX MICROSCOPIC AND CULTURE Routine 04/02/2025 5:14 PM EDT URINALYSIS WITH REFLEX MICROSCOPIC AND CULTURE Routine 04/02/2025 5:14 PM EDT POCT GLUCOSE BLOOD Routine 04/02/2025 4: 36 PM EDT VENOUS BLOOD GAS Timed 04/02/2025 3:00 PM EDT B-TYPE NATRIURETIC PEPTIDE STAT 04/02/2025 3:00 PM EDT LEGIONELLA ANTIGEN URINE, EIA STAT 04/02/2025 3:00 PM EDT CULTURE BLOOD STAT 04/02/2025 3:00 PM EDT CULTURE BLOOD STAT 04/02/2025 3:00 PM EDT PEP THERAPY Routine 04/02/2025 2:03 PM EDT PEP THERAPY Routine 04/02/2025 2:[address] ANGIO CHEST WO AND/OR W CONTRAST STAT 04/02/2025 12:34 PM EDT Shortness of breath LACTATE, WITH REFLEX STAT 04/02/2025 12:02 PM EDT RESPIRATORY VIRUS PANEL MOLECULAR STUDY STAT 04/02/2025 12:02 PM EDT ECG 12-LEAD STAT 04/02/2025 11:37 AM EDT PROCALCITONIN STAT Add-on 04/02/2025 11:31 AM EDT CBC WITH AUTO DIFFERENTIAL STAT 04/02/2025 11:31 AM EDT VENOUS BLOOD GAS STAT 04/02/2025 11:3 1 AM EDT CBC AND DIFFERENTIAL STAT 04/02/2025 11:31 AM EDT BASIC METABOLIC PANEL STAT 04/02/2025 11:31 AM EDT MAGNESIUM STAT 04/02/2025 11:31 AM EDT TROPONIN I HIGH SENSITIVITY STAT 04/02/2025 11:31 AM EDT ECG ANNOTATED 04/02/2025 XR CHEST 2 VIEWS STAT 03/31/2025 8:38 PM EDT CBC WITH AUTO DIFFERENTIAL STAT 03/31/2025 5:56 PM EDT B-TYPE NATRIURETIC PEPTIDE STAT 03/31/2025 5:56 PM EDT BASIC METABOLIC PANEL STAT 03/31/2025 5:56 PM EDT CBC AND DIFFERENTIAL STAT 03/31/2025 5:56 PM EDT ECG 12-LEAD STAT 03/31/2025 5:45 PM EDT from Last 3 Months Results * (ABNORMAL) POCT Glucose, blood (04/04/2025 12:03 PM EDT) Only the most recent of11 resultswithin the time period is included. [facility] Glucose POCT 263(H) 70 - 100 mg/dL 04/04/2025 12:04 PM EDT [facility] Blood Capillary blood specimen / Unknown 04/04/2025 12:03 PM EDT 04/04/2025 12:05 PM EDT Cholo Conde MD LAB POINT O F CARE TEST DOCKED DEVICE UNSOLICITED RESULTS Final Result [facility] [address] [place] [address], * (ABNORMAL) Complete blood count (04/04/2025 5:59 AM EDT) Only the most recent of2 resultswithin the time period is included. [facility] WBC 10.7 4.8 - 10.8 K/mcL LAB HEMETOLOGY METHOD 04/04/2025 6:50 AM EDT [facility] RBC 4.90 4.50 - 5.50 M/mcL LAB HEMETOLOGY METHOD 04/04/2025 6:50 AM EDT [facility] Hemoglobin 14.2 13.5 - 17.5 g/dL LAB HEMETOLOGY METHOD 04/04/2025 6:50 AM EDT [facility] Hematocrit 44.2 42.0 - 54.0 % LAB HEMETOLOGY METHOD 04/04/2025 6:50 AM EDT [facility] MCV 90.9 79.0 - 98.0 FL LAB HEMETOLOGY METHOD 04/04/2025 6:50 AM EDT [facility] MCH 29.2 27.0 - 32.0 pcg LAB HEMETOLOGY METHOD 04/04/2025 6:50 AM EDT [facility] MCHC 32.1 32.0 - 37.0 g/dL LAB HEMETOLOGY METHOD 04/04/2025 6:50 AM EDT [facility] RDW 12.7 11.0 - 15.0 % LAB HEMETOLOGY METHOD 04/04/2025 6:50 AM EDT [facility] Platelets 229 130 - 400 K/mcL LAB HEMETOLOGY METHOD 04/04/2025 6:50 AM EDT [facility] MPV 11.4(H) 7.0 - 11.0 FL LAB HEMETOLOGY METHOD 04/04/2025 6:50 AM EDT [facility] NRBC 0.0 <1.0 % LAB HEMETOLOGY METHOD 04/04/2025 6:50 AM EDT [facility] NRBC Absolute 0.00 <0.10 K/mcL LAB HEMETOLOGY METHOD 04/04/2025 6:50 AM EDT [facility] Blood Venous blood specimen / Unknown Venipuncture / Unknown 04/04/2025 5:59 AM EDT 04/04/2025 6:21 AM EDT Cholo Conde MD LAB BLOOD ORDERABLE S Final Result [facility] [address] [place] [address], * (ABNORMAL) Phosphorus (04/04/2025 5:59 AM EDT) [facility] Signature Phosphorus 5.5(H) 2.5 - 4.5 mg/dL LAB CHEMISTRY METHOD 04/04/2025 7:48 AM EDT [facility] Blood Venous blood specimen / Unknown Venipuncture / Unknown 04/04/2025 5:59 AM EDT 04/04/2025 6:21 AM EDT us Cholo Conde MD LAB BLOOD ORDERABLE S Final Result Performing Organization Address City/[facility]/ZIP Co de Phone Number [facility] [address] [place] [address], [place] [phone] * Magnesium (04/04/2025 5:59 AM EDT) Only the most recent of2 resultswithin the time period is included. [facility] Magnesium 2.2 1.9 - 2.6 mg/dL LAB CHEMISTRY METHOD 04/04/2025 7:48 AM EDT [facility] Blood Venous blood specimen / Unknown Venipuncture / Unknown 04/04/2025 5:59 AM EDT 04/04/2025 6:21 AM EDT us Cholo Conde MD LAB BLOOD ORDERABLE S Final Result Performing Organization Address [facility]/ZIP Co de Phone Number [facility] [address] [place] [address], [place] [phone] * (ABNORMAL) Basic metabolic panel (04/04/2025 5:59 AM EDT) Only the most recent of4 resultswithin the time period is included. [facility] Sodium 136 133 - 145 mmol/L LAB CHEMISTRY METHOD 04/04/2025 7:50 AM EDT [facility] Potassium 4.6 3.5 - 5.5 mmol/L LAB CHEMISTRY METHOD 04/04/2025 7:50 AM EDT [facility] Chloride 100 96 - 110 mmol/L LAB CHEMISTRY METHOD 04/04/2025 7:50 AM EDT [facility] CO2 34(H) 21 - 32 mmol/L LAB CHEMISTRY METHOD 04/04/2025 7:50 AM EDT [facility] Anion Gap 2(L) 3 - 11 LAB CHEMISTRY METHOD 04/04/2025 7:50 AM EDT [facility] Glucose 216(H) 70 - 100 mg/dL LAB CHEMISTRY METHOD 04/04/2025 7:50 AM EDT [facility] BUN 29(H) 5 - 25 mg/dL LAB CHEMISTRY METHOD 04/04/2025 7:50 AM EDT [facility] Creatinine 1.05 0.70 - 1.30 mg/dL LAB CHEMISTRY METHOD 04/04/2025 7:50 AM EDT [facility] eGFR 80 >=60 mL/min/1. 73m2 LAB CHEMISTRY METHOD 04/04/2025 7:50 AM EDT [facility] Comment:Calculation based on the Chronic Kidney Disease Epidemiology Collaboration (CKD-EPI) equation refit without adjustment for race. BUN/Creatinine Ratio 27.6 LAB CHEMISTRY METHOD 04/04/2025 7:50 AM EDT [facility] Calcium 8.8 8.5 - 10.5 mg/dL LAB CHEMISTRY METHOD 04/04/2025 7:50 AM T [facility] Blood Venous blood specimen / Unknown Venipuncture / Unknown 04/04/2025 5:59 AM EDT 04/04/2025 6:21 AM EDT Cholo Conde MD LAB BLOOD ORDERABLE S Final Result [facility] [address] [place] [address], * (ABNORMAL) Venous blood gas (04/03/2025 8:22 AM EDT) Only the most recent of6 resultswithin the time period is included. pH, Nura 7.40 7.32 - 7.42 pH 04/03/2025 8:31 AM EDT [facility] pCO2, Nura 50 41 - 51 mmHg 04/03/2025 8:31 AM EDT [facility] pO2, Nura 58(H) 25 - 40 mmHg 04/03/2025 8:31 AM EDT [facility] HCO3, Venous 28.4(H) 22.0 - 26.0 mmol/L 04/03/2025 8:31 AM EDT [facility] O2 Sat, Nura 92.1 % 04/03/2025 8:31 AM EDT [facility] Base Excess, Nura 4.8(H) -2.0 - 2.0 mmol/L 04/03/2025 8:31 AM EDT [facility] Blood Venous blood specimen / Unknown Venipuncture / Unknown 04/03/2025 8:22 AM EDT 04/03/2025 8:26 AM EDT Sweta Paul WATER RESOURCE MANAGER LAB BLOOD ORDERABLES Fin al Result [facility] [address] [place] [address], * Streptococcus pneumoniae antibodies, IgG, 23 serotypes (04/03/2025 4:03 AM EDT) Serotype 1 (1) 0.7 >=1.0 mcg/mL 04/10/2025 11:08 AM EDT [facility] Serotype 2 (2) 0.3 >=1.0 mcg/mL 04/10/2025 11:08 AM EDT [facility] Serotype 3 (3) 0.1 >=1.0 mcg/mL 04/10/2025 11:08 AM EDT [facility] Serotype 4 (4) 0.1 >=1.0 mcg/mL 04/10/2025 11:08 AM EDT [facility] Serotype 5 (5) <0.1 >=1.0 mcg/mL 04/10/2025 11:08 AM EDT [facility] Serotype 8 (8) 1.6 >=1.0 mcg/mL 04/10/2025 11:08 AM EDT [facility] Serotype 9 (9N) 0.2 >=1.0 mcg/mL 04/10/2025 11:08 AM EDT [facility] Serotype 12F (12) 0.1 >=1.0 mcg/mL 04/10/2025 11:08 AM EDT [facility] Serotype 14 (14) 18.5 >=1.0 mcg/mL 04/10/2025 11:08 AM EDT [facility] Serotype 17 (17F) 0.3 >=1.0 mcg/mL 04/10/2025 11:08 AM EDT [facility] Serotype 19 (19F) 1.0 >=1.0 mcg/mL 04/10/2025 11:08 AM EDT [facility] Serotype 20 (20) 0.5 >=1.0 mcg/mL 04/10/2025 11:08 AM EDT [facility] Serotype 22F (22) 0.3 >=1.0 mcg/mL 04/10/2025 11:08 AM EDT [facility] Serotype 23 (23F) 0.6 >=1.0 mcg/mL 04/10/2025 11:08 AM EDT [facility] Serotype 6B 1.9 >=1.0 mcg/mL 04/10/2025 11:08 AM EDT [facility] Serotype 10A 0.6 >=1.0 mcg/mL 04/10/2025 11:08 AM EDT [facility] Serotype 11A 0.6 >=1.0 mcg/mL 04/10/2025 11:08 AM EDT [facility] Serotype 7F 0.3 >=1.0 mcg/mL 04/10/2025 11:08 AM EDT [facility] Serotype 15B 2.1 >=1.0 mcg/mL 04/10/2025 11:08 AM EDT [facility] Serotype 18C 0.5 >=1.0 mcg/mL 04/10/2025 11:08 AM EDT [facility] Serotype 19A SEE BELOW >=1.0 mcg/mL 04/10/2025 11:08 AM EDT [facility] Comment: No result available due to non-linear dilution response for this serotype. See Interpretation. Serotype 9V 1.5 >=1.0 mcg/mL 04/10/2025 11:08 AM EDT [facility] Serotype 33F 1.0 >=1.0 mcg/mL 04/10/2025 11:08 AM EDT [facility] Interpretation SEE BELOW 04/10/2025 11:08 AM EDT [facility] Comment: Unable to quantitate serotype 19A (57) due to nonlinear dilution response of patient sample. Overall interpretation of pneumococcal antibody serology panel can be based on the reported 22 serotypes. Evaluation of the immune response following pneumococcal vaccination can be assessed by measuring serotype-specific Streptococcus pneumonia IgG antibodies. Either of the following conditions is consistent with a normal response to Streptococcus pneumonia vaccination: 1. When comparing pre and post-vaccination samples, antibody concentrations increased by at least 2-fold for either >50% of serotypes in children <6 years of age or >70% of serotypes for individuals >6 years of age. 2. In either a pre- or post-vaccination sample, antibody concentrations >=1.0 mcg/mL for either >50% of serotypes for children <6 years of age or >70% of serotypes for individuals >6 years of age. Results >=1.0 mcg/mL or those showing a >=2-fold change are consistent with an immune response, but are not necessarily sufficient to provide protection against infection. ADDITIONAL INFORMATION This test was developed and its performance characteristics determined by [facility] in a manner consistent with CLIA requirements. This test has not been cleared or approved by the U.S. Food and Drug Administration. Test Performed by: [facility] - [address] Clerk: Amelia Crane Ph.D.; CLIA# [id number] Blood Venous blood specimen / Unknown Venipuncture / Unknown 04/03/2025 4:03 AM EDT 04/03/2025 4:09 AM EDT us Sweta Paul WATER RESOURCE MANAGER LAB BLOOD ORDERABLES Fin al Result [facility] [address] [place] [address] * ECG-Annotated (04/03/2025) Only the most recent of2 resultswithin the time period is included. us Provider Onbase MD ECG ORDERABLES Final Result * (ABNORMAL) Urinalysis with reflex microscopic and culture (04/02/2025 5:14 PM EDT) Specific [place] Urine >1.045(H) 1.003 - 1.030 LAB URINALYSIS - AUTOMATED METHOD 04/02/2025 6:11 PM [facility] pH, Urine 5.5 5.0 - 8.0 pH LAB URINALYSIS - AUTOMATED METHOD 04/02/2025 6:11 PM [facility] Leukocytes, Urine Negative Negative LAB URINALYSIS - AUTOMATED METHOD 04/02/2025 6:11 PM [facility] Nitrite, Urine Negative Negative LAB URINALYSIS - AUTOMATED METHOD 04/02/2025 6:11 PM [facility] Protein, Urine 30(A) <=Trace mg/dL LAB URINALYSIS - AUTOMATED METHOD 04/02/2025 6:11 PM [facility] Glucose, Urine >=1000(A) Negative mg/dL LAB URINALYSIS - AUTOMATED METHOD 04/02/2025 6:11 PM [facility] Ketones, Urine Negative Negative mg/dL LAB URINALYSIS - AUTOMATED METHOD 04/02/2025 6:11 PM [facility] Urobilinogen , Urine 0.2 0.2 - 1.0 mg/dL LAB URINALYSIS - AUTOMATED METHOD 04/02/2025 6:11 PM [facility] Bilirubin, Urine Negative Negative LAB URINALYSIS - AUTOMATED METHOD 04/02/2025 6:11 PM [facility] Blood, Urine Negative Negative LAB URINALYSIS - AUTOMATED METHOD 04/02/2025 6:11 PM [facility] RBC, Urine 1.1 0 - 4 /HPF LAB URINALYSIS - AUTOMATED METHOD 04/02/2025 6:11 PM EDT [facility] WBC, Urine 0.3 0 - 4 /HPF LAB URINALYSIS - AUTOMATED METHOD 04/02/2025 6:11 PM EDT [facility] Squamous Epithelial, Urine 3 0 - 60 /LPF LAB URINALYSIS - AUTOMATED METHOD 04/02/2025 6:11 PM EDT [facility] Bacteria, Urine Negative Negative /HPF LAB URINALYSIS - AUTOMATED METHOD 04/02/2025 6:11 PM EDT [facility] Hyaline Casts, Urine 0.0 0 - 3 /LPF LAB URINALYSIS - AUTOMATED METHOD 04/02/2025 6:11 PM EDT [facility] Urine Urine specimen obtained by clean catch procedure / Unknown Non-blood Collection / Unknown 04/02/2025 5:14 PM EDT 04/02/2025 6:00 PM EDT us Sweta Paul WATER RESOURCE MANAGER LAB URINE ORDERABLES Fin al Result Performing Organization Address City/[facility]/ZIP Co de Phone Number [facility] [address] [place] [address], [place] [phone] * Dumont urine culture tube (04/02/2025 5:14 PM EDT) Extra Tube Hold for add-ons. 04/02/2025 7:01 PM EDT [facility] Comment:Auto resulted. Urine Urine specimen obtained by clean catch procedure / Unknown Non-blood Collection / Unknown 04/02/2025 5:14 PM EDT 04/02/2025 6:00 PM EDT Swetaajit Castror WATER RESOURCE MANAGER LAB URINE ORDERABLES Fin al Result Performing Organization Address City/[facility]/ZIP Co de Phone Number [facility] [address] [place] [address], [place] [phone] * Legionella antigen urine, EIA (04/02/2025 3:00 PM EDT) Legionella Antigen, Ur Negative Negative 04/02/2025 4:23 PM EDT [facility] Urine Urine specimen from urethra / Unknown Non-blood Collection / Unknown 04/02/2025 3:00 PM EDT 04/02/2025 3:06 PM EDT Narrative [facility] - 04/02/2025 4:23 PM EDT Negative for Legionella pneumophilia serogroup 1 antigen. This presumptive result suggests no current or recent infection due to L. pneumophilia serogroup 1. Culture is recommended if Legionella infection is till suspected, as other serogroups and species of Legionella are not detected by this test. Sweta Paul NP LAB URINE ORDERABLES Fin al Result [facility] [address] [place] [address], [place] [phone] * Culture blood (04/02/2025 3:00 PM EDT) Only the most recent of2 resultswithin the time period is included. Pathologist [facility] Culture, Blood No growth at 5 days 04/07/2025 4:01 PM EDT [facility] Blood Venous blood specimen / Unknown Venipuncture / Unknown 04/02/2025 3:00 PM EDT 04/02/2025 3:06 PM EDT us Sweta Paul NP LAB MICROBIOLOGY - GENER AL ORDERABLES Final Result [facility] [address] [place] [address], [place] [phone] * B-type natriuretic peptide (04/02/2025 3:00 PM EDT) Only the most recent of2 resultswithin the time period is included. BNP 59 <=100 pcg/mL LAB CHEMISTRY METHOD 04/02/2025 4:51 PM EDT [facility] Blood Venous blood specimen / Unknown Venipuncture / Unknown 04/02/2025 3:00 PM EDT 04/02/2025 3:05 PM EDT us Sweta Paul WATER RESOURCE MANAGER LAB BLOOD ORDERABLES Fin al Result [facility] [address] [place] [address], [place] [phone] * CT Angio Chest wo and/or w Contrast (04/02/2025 12:34 PM EDT) Anatomical Region Laterality Modality Body Computed Tomogra phy 04/02/2025 12:5 9 PM EDT Impressions 04/02/2025 1:05 PM EDT Suboptimal contrast bolus; given this limitation, no visible pulmonary embolism. Mild diffuse bronchial wall thickening, similar to the previous study. Stable bilateral pulmonary nodules. -------- FINAL REPORT -------- Dictated By: Matthew Anaya Dictated Date: 04/02/2025 12:59 ET Assigned Physician: Matthew Anaya Reviewed and Electronically Signed By: Matthew Anaya Signed Date: 04/02/2025 13:05 ET Workstation ID: [id number] Transcribed By: Self Edit Transcribed Date: 04/02/2025 12:59 ET Narrative 04/02/2025 1:05 PM EDT PROCEDURE: CT pulmonary angiogram. HISTORY: Chest pain, nonspecific SOB, CP, hypoxia. TECHNIQUE: CT of the chest with intravenous contrast administration with pulmonary angiogram protocol. Coronal and sagittal reformats and MIP reconstructions were created. Dose length product: 1765 mGy-cm. Contrast dose: 90 mL ISOVUE-370. COMPARISON: 11/29/2024. FINDINGS: LUNGS/PLEURA: Mild diffuse bronchial wall thickening, similar to the previous study. Normal caliber airways. Stable scattered small bilateral pulmonary nodules. The largest are a 6 mm nodule at the right base, series 7, image 232, and a 7 mm left lower lobe nodule on image 281. No pleural effusion or pneumothorax. There are a few thin pleural calcifications on the right. MEDIASTINUM/CIARRA: No mass or lymphadenopathy. VASCULATURE: Normal caliber pulmonary arteries. Suboptimal contrast bolus, but given this limitation, no visible pulmonary embolism. Mild atherosclerotic calcifications of the great vessels. CARDIAC: Normal heart size. Moderate coronary artery calcification. CHEST WALL: No axillary or supraclavicular lymphadenopathy. LIMITED ABDOMEN: Solitary calcified granuloma in the right hepatic lobe. BONES: Mild degenerative changes of the spine with findings of DISH. Procedure Note Matthew Anaya MD - 04/02/2025 PROCEDURE: CT pulmonary angiogram. HISTORY: Chest pain, nonspecific SOB, CP, hypoxia. TECHNIQUE: CT of the chest with intravenous contrast administration withpulmonary angiogram protocol. Coronal and sagittal reformats and MIPreconstructions were created. Dose length product: 1765 mGy-cm. Contrast dose: 90 mL ISOVUE-370. COMPARISON: 11/29/2024. FINDINGS: LUNGS/PLEURA: Mild diffuse bronchial wall thickening, similar to theprevious study. Normal caliber airways. Stable scattered small bilateralpulmonary nodules. The largest are a 6 mm nodule at the right base,series 7, image 232, and a 7 mm left lower lobe nodule on image 281. Nopleural effusion or pneumothorax. There are a few thin pleuralcalcifications on the right. MEDIASTINUM/CIARRA: No mass or lymphadenopathy. VASCULATURE: Normal caliber pulmonary arteries. Suboptimal contrastbolus, but given this limitation, no visible pulmonary embolism. Mildatherosclerotic calcifications of the great vessels. CARDIAC: Normal heart size. Moderate coronary artery calcification. CHEST WALL: No axillary or supraclavicular lymphadenopathy. LIMITED ABDOMEN: Solitary calcified granuloma in the right hepatic lobe. BONES: Mild degenerative changes of the spine with findings of DISH. IMPRESSION: Suboptimal contrast bolus; given this limitation, no visible pulmonaryembolism. Mild diffuse bronchial wall thickening, similar to the previous study. Stable bilateral pulmonary nodules. -------- FINAL REPORT -------- Dictated By: Matthew Anaya Dictated Date: 04/02/2025 12:59 ET Assigned Physician: Matthew Anaya Reviewed and Electronically Signed By: Matthew Anaya Signed Date: 04/02/2025 13:05 ET Workstation ID: [id number] Transcribed By: Self Edit Transcribed Date: 04/02/2025 12:59 ET Val Santana WATER RESOURCE MANAGER IMG CT PROCEDURES Final Result * Lactate, with Reflex (04/02/2025 12:02 PM EDT) [facility] LACTIC ACID 1.6 0.4 - 2.0 mmol/L LAB CHEMISTRY METHOD 04/02/2025 12:56 PM EDT [facility] Blood Venous blood specimen / Unknown Venipuncture / Unknown 04/02/2025 12:02 PM EDT 04/02/2025 12:06 PM EDT Val Santana WATER RESOURCE MANAGER LAB BLOOD ORDERABLES Final Resu lt [facility] [address] [place] [address], [place] [phone] * Respiratory virus panel molecular study (04/02/2025 12:02 PM EDT) [facility] Adenovirus Detection by PCR Not Detected Not Detected LAB MICROBIOLOGY METHOD 04/02/2025 1:06 PM EDT [facility] Influenza A PCR Not Detected Not Detected LAB MICROBIOLOGY METHOD 04/02/2025 1:06 PM EDT [facility] Influenza B PCR Not Detected Not Detected LAB MICROBIOLOGY METHOD 04/02/2025 1:06 PM EDT [facility] Coronavirus 229E Not Detected Not Detected LAB MICROBIOLOGY METHOD 04/02/2025 1:06 PM EDT [facility] Coronavirus HKU1 Not Detected Not Detected LAB MICROBIOLOGY METHOD 04/02/2025 1:06 PM EDT [facility] Coronavirus OC43 Not Detected Not Detected LAB MICROBIOLOGY METHOD 04/02/2025 1:06 PM EDT [facility] Coronavirus NL63 Not Detected Not Detected LAB MICROBIOLOGY METHOD 04/02/2025 1:06 PM EDT [facility] Parainfluenza Virus 1 Not Detected Not Detected LAB MICROBIOLOGY METHOD 04/02/2025 1:06 PM EDT [facility] Parainfluenza Virus 2 Not Detected Not Detected LAB MICROBIOLOGY METHOD 04/02/2025 1:06 PM EDT [facility] Parainfluenza Virus 3 Not Detected Not Detected LAB MICROBIOLOGY METHOD 04/02/2025 1:06 PM EDT [facility] Parainfluenza Virus 4 Not Detected Not Detected LAB MICROBIOLOGY METHOD 04/02/2025 1:06 PM EDT [facility] RSV PCR Not Detected Not Detected LAB MICROBIOLOGY METHOD 04/02/2025 1:06 PM EDT [facility] Human Metapneumovirus A and B Not Detected Not Detected LAB MICROBIOLOGY METHOD 04/02/2025 1:06 PM EDT [facility] Rhinovirus/Entero virus Not Detected Not Detected LAB MICROBIOLOGY METHOD 04/02/2025 1:06 PM EDT [facility] Bordetella pertussis Not Detected Not Detected LAB MICROBIOLOGY METHOD 04/02/2025 1:06 PM EDT [facility] Bordetella parapertussis Not Detected Not Detected LAB MICROBIOLOGY METHOD 04/02/2025 1:06 PM EDT [facility] Mycoplasma pneumo by PCR Not Detected Not Detected LAB MICROBIOLOGY METHOD 04/02/2025 1:06 PM EDT [facility] Chlamydia pneumoniae Not Detected Not Detected LAB MICROBIOLOGY METHOD 04/02/2025 1:06 PM EDT [facility] SARS COV-2 Not Detected Not Detected LAB MICROBIOLOGY METHOD 04/02/2025 1:06 PM EDT [facility] Swab Both anterior nares / Unknown Non-blood Collection / Unknown 04/02/2025 12:02 PM EDT 04/02/2025 12:07 PM EDT Narrative [facility] - 04/02/2025 1:06 PM EDT Testing was performed using the picsell Respiratory Pathogen PCR Assay. All results must be correlated with the clinical findings. Results should not be used as the sole basis for diagnosis. False Negative results may occur from the presence of sequence variants in the region targeted by the assay or the presence of inhibitors. Results may be affected by concurrent antiviral/antimicrobial therapy or levels of organisms that are below the limit of detection. Val Santana WATER RESOURCE MANAGER LAB MICROBIOLOGY - GENERAL ORDE RABLES Final Result Performing Organization Address City/[facility]/ZIP Co de Phone Number [facility] [address] [place] [address], [place] [phone] * 12-Lead ECG (04/02/2025 11:37 AM EDT) Only the most recent of2 resultswithin the time period is included. [facility] Ventricular Rate ECG 99 BPM GEMUSE Atrial Rate 99 BPM GEMUSE P-R Interval 150 ms GEMUSE QRS Duration 76 ms GEMUSE Q-T Interval 352 ms GEMUSE QTc 451 ms GEMUSE P Wave Holmen 35 degrees GEMUSE R Holmen 59 degrees GEMUSE T Holmen 88 degrees GEMUSE ECG Interpretation Normal sinus rhythm with sinus arrhythmia Nonspecific ST and T wave abnormality Abnormal ECG When compared with ECG of 31-MAR-2025 17:45, No significant change was found Confirmed by LARRY MENDOZA ([id number]) on 04/03/2025 1:23:24 PM GEMUSE 04/02/2025 11:3 7 AM EDT 04/03/2025 1:23 PM EDT Val Santana ECG ORDERABLES Final Result GEMUSE * Troponin I High Sensitivity (04/02/2025 11:31 AM EDT) [facility] High Sensitivity Troponin I 31 <=79 ng/L LAB CHEMISTRY METHOD 04/02/2025 12:22 PM EDT [facility] Blood Venous blood specimen / Unknown Venipuncture / Unknown 04/02/2025 11:31 AM EDT 04/02/2025 11:46 AM EDT Narrative [facility] - 04/02/2025 12:22 PM EDT High levels of biotin in samples may falsely decrease hsTroponin values. Use caution when interpreting hsTroponin results in patients taking biotin who exhibit renal impairment (eGFR <60) or in patients taking more than 20 mg/day of biotin. us Val Santana NP LAB BLOOD ORDERABLES Final Resu lt [facility] [address] [place] [address], * Procalcitonin (04/02/2025 11:31 AM EDT) Procalcitonin 0.05 <=0.16 ng/mL LAB CHEMISTRY METHOD 04/02/2025 2:43 PM EDT [facility] Blood Venous blood specimen / Unknown Venipuncture / Unknown 04/02/2025 11:31 AM EDT 04/02/2025 11:46 AM EDT Narrative [facility] - 04/02/2025 2:43 PM EDT Procalcitonin > 2.00 ng/ml: Procalcitonin Levels above 2.00 ng/ml, on the first day of ICU admission represent a high risk for progression to severe sepsis and/or septic shock. Procalcitonin < 0.50 ng/ml: Procalcitonin levels below 0.50 ng/ml on the first day of ICU admission represent a low risk for progression to severe sepsis and/or septic shock. Concentrations <0.5 ng/mL do not exclude an infection, on account of local ized infections (without systemic signs) which can be associated with such low concentrations, or a systemic infection in its initial stages (<6 hours). Furthermore, increased procalcitonin can occur without infection. PCT concentrations between 0.5 and 2.0 ng/mL should be interpreted taking into account the patient's history. It is recommended to retest PCT within 6-24 hours if any concentrations <2.0 ng/mL are obtained. us Sweta Blanco Oscar Paul NP LAB BLOOD ORDERABLES Fin al Result [facility] [address] [place] [address], * (ABNORMAL) CBC auto differential (04/02/2025 11:31 AM EDT) Only the most recent of2 resultswithin the time period is included. WBC 5.5 4.8 - 10.8 K/mcL LAB HEMETOLOGY METHOD 04/02/2025 12:24 PM EDT [facility] RBC 5.30 4.50 - 5.50 M/mcL LAB HEMETOLOGY METHOD 04/02/2025 12:24 PM EDT [facility] Hemoglobin 15.6 13.5 - 17.5 g/dL LAB HEMETOLOGY METHOD 04/02/2025 12:24 PM EDT [facility] Hematocrit 49.9 42.0 - 54.0 % LAB HEMETOLOGY METHOD 04/02/2025 12:24 PM EDT [facility] MCV 93.4 79.0 - 98.0 FL LAB HEMETOLOGY METHOD 04/02/2025 12:24 PM EDT [facility] MCH 29.2 27.0 - 32.0 pcg LAB HEMETOLOGY METHOD 04/02/2025 12:24 PM EDT [facility] MCHC 31.3(L) 32.0 - 37.0 g/dL LAB HEMETOLOGY METHOD 04/02/2025 12:24 PM EDT [facility] RDW 12.7 11.0 - 15.0 % LAB HEMETOLOGY METHOD 04/02/2025 12:24 PM EDT [facility] Platelets 212 130 - 400 K/mcL LAB HEMETOLOGY METHOD [facility]/02[facility]2025 [facility] MPV 11.6(H) 7.0 - 11.0 FL LAB HEMETOLOGY METHOD 04/02/2025 12:[facility] NRBC 0.0 <1.0 % LAB HEMETOLOGY METHOD 04/02/2025 12:[facility] NRBC Absolute 0.00 <0.10 K/mcL LAB HEMETOLOGY METHOD 04/02/2025 12:[facility] Neutrophils Relative 52.1 % LAB HEMETOLOGY METHOD 04/02/2025 12:24 PM [facility] Lymphocytes Relative 27.7 % LAB HEMETOLOGY METHOD 04/02/2025 12:24 PM [facility] Monocytes Relative 9.9 % LAB HEMETOLOGY METHOD 04/02/2025 12:24 PM [facility] Eosinophils Relative 9.2 % LAB HEMETOLOGY METHOD 04/02/2025 12:24 PM [facility] Basophils Relative 0.9 % LAB HEMETOLOGY METHOD 04/02/2025 12:24 PM [facility] Immature Granulocytes Relative 0.2 % LAB HEMETOLOGY METHOD 04/02/2025 12:24 PM [facility] Neutrophils Absolute 2.84 1.50 - 7.00 K/mcL LAB HEMETOLOGY METHOD 04/02/2025 12:24 PM [facility] Lymphocytes Absolute 1.51 1.00 - 5.00 K/mcL LAB HEMETOLOGY METHOD 04/02/2025 12:24 PM [facility] Monocytes Absolute 0.54 0.20 - 1.00 K/mcL LAB HEMETOLOGY METHOD 04/02/2025 12:24 PM EDT [facility] Eosinophils Absolute 0.50 0.00 - 0.50 K/mcL LAB HEMETOLOGY METHOD 04/02/2025 12:24 PM EDT [facility] Basophils Absolute 0.05 0.00 - 0.20 K/mcL LAB HEMETOLOGY METHOD 04/02/2025 12:24 PM EDT [facility] Immature Granulocytes Absolute 0.01 0.00 - 0.03 K/[facility] LAB HEMETOLOGY METHOD 04/02/2025 12:24 PM EDT [facility] Blood Venous blood specimen / Unknown Venipuncture / Unknown 04/02/2025 11:31 AM EDT 04/02/2025 11:46 AM EDT Val Santana WATER RESOURCE MANAGER LAB BLOOD ORDERABLES Final Resu lt [facility] [address] [place] [address], [place] [phone] * XR Chest 2 Views (03/31/2025 8:38 PM EDT) Anatomical Region Laterality Modality Body Radiographic Chiquis ging 04/01/2025 9:25 AM EDT Impressions 04/01/2025 9:27 AM EDT Impression: 1. Stable cardiomegaly. 2. Mild bibasilar subsegmental atelectasis or scar. Telerad PA ([id number]) -------- FINAL REPORT -------- Dictated By: Mercedes Frazier Dictated Date: 04/01/2025 09:25 ET Assigned Physician: Mercedes Frazier Reviewed and Electronically Signed By: Mercedes Frazier Signed Date: 04/01/2025 09:27 ET Workstation ID: [id number] Transcribed By: Self Edit Transcribed Date: 04/01/2025 09:25 ET Narrative 04/01/2025 9:27 AM EDT History: Dyspnea. Comparison: 11/29/24, 12/03/22, thoracic CT 11/29/24 Findings: PA and lateral views. The cardiac silhouette remains enlarged. Hilar contours and pulmonary vascularity are within normal limits. There is minimal streaky parenchymal opacity in both lower lungs, suggesting subsegmental atelectasis or scar. The costophrenic angles are sharp. Thoracic vertebral endplate spurring is noted. Procedure Note Mercedes Frazier MD - 04/01/2025 History: Dyspnea. Comparison: 11/29/24, 12/03/22, thoracic CT 11/29/24 Findings: PA and lateral views. The cardiac silhouette remains enlarged. Hilarcontours and pulmonary vascularity are within normal limits. There isminimal streaky parenchymal opacity in both lower lungs, suggestingsubsegmental atelectasis or scar. The costophrenic angles are sharp. Thoracic vertebral endplate spurring is noted. IMPRESSION: Impression: 1. Stable cardiomegaly. 2. Mild bibasilar subsegmental atelectasis or scar. Telerad ROMINA ([id number]) -------- FINAL REPORT -------- Dictated By: Mercedes Frazier Dictated Date: 04/01/2025 09:25 ET Assigned Physician: Mercedes Frazier Reviewed and Electronically Signed By: Mercedes Frazier Signed Date: 04/01/2025 09:27 ET Workstation ID: [id number] Transcribed By: Self Edit Transcribed Date: 04/01/2025 09:25 ET [place] [facility] IMG XR PROCEDURES Final R esult from Last [address] [place] [address] [address] [place] [address] MEDICARE Member Subscriber Plan / Payer (Ef fective 2024-Present) Name:SERGIO HANSEN Relation to Subscriber:Self Name:Sergio Sarah Payer ID:[id number] Group ID:[id number] Type:Not on file Address: [facility] [address] [id number] Advance Directives Documents on File Type Date Recorded Patient Dental Sales Representative Expl anation Advance Directives and Living Will 04/02/2025 2:30 PM Gina Joanne Weinstein Health Care Proxy * Full Code - Confirmed (Latest Code Status on File) Date Activated Date Inactivated Comments 04/02/2025 2:03 PM 04/04/2025 7:[address] atus was ascertained in the following way: Code status discussion: discussion with patient To update the patient's code status, place a code status order. Do not modify or discontinue any currently active code status orders. * Full Code - Default Date Activated Date Inactivated Comments 04/02/2025 1:29 PM 04/02/2025 2:03 PM This is orde r is used when code status has not been discussed with the patient, or code status is otherwise unknown/unconfirmed To update the patient's code status, place a code status order. Do not modify or discontinue any currently active code status orders. * Full Code - Default Date Activated Date Inactivated Comments 11/29/2024 3:06 PM 11/30/2024 2:27 PM This is orde r is used when code status has not been discussed with the patient, or code status is otherwise unknown/unconfirmed To update the patient's code status, place a code status order. Do not modify or discontinue any currently active code status orders. Healthcare Agents on File Name Relationship Healthcare Agent [facility] Communication Priscilla Weinstein Spouse First Alter jones Health Care Agent Gina Orourkesus Daughter Second Alternate Health Care Agent Care Teams Motion Graphics Designer Relationship Specialty Start Date End Date Kristie Olivas MD [address] [place] [address] PCP - General Internal Medicine 01/06/22
--- OUTSIDE RECORDS SUMMARY | 2025-06-11 17:46 | XMS_ITS | Patient Health Record ---
Author Organization [facility] [place] Address [address] [place] [address] Care Team Providers Care Nutrition Therapist Name Role Phone Brendon LAUGHLIN, Kristie Primary Care Provider John Kruger Unavailable [phone] Amirah Cortes Unavailable [phone] Allergies No Known Allergies Results Component Value Reference Range Notes HEMOGLOBIN A1C (GLYCOHEMOGLO BIN) Reviewed date:07/27/2024 01:08:54 PM Interpretation: Performing Lab: Notes/Report: TOTAL HEMOGLOBIN (HGBA1C) 8.1 HEMOGLOBIN A1C (GLYCOHEMOGLO BIN) Reviewed date:05/29/2025 01:26:52 PM Interpretation: Performing Lab: Notes/Report: HEMOGLOBIN A1C % (HH) 9.0 Reason For Referral No Information Medications Medication SIG (Take, Route, Frequency, Duration) Notes Start Date End Date Status Omeprazole 20 MG Oral; Duration: 90 Days Active Trulicity 1.5 MG/0.5ML Subcutaneous; Duration: 28 Days Not-Taking Trulicity 3 MG/0.5ML Subcutaneous; Duration: 28 Days Not-Taking Trulicity 0.75 MG/0.5ML Subcutaneous; Duration: 28 Days Active Albuterol Sulfate HFA 108 (90 Base) MCG/ACT Inhalation; Duration: 25 Days Active BD Syringe Luer-Nichole 1 ML ; Duration: 28 Days Not-Taking Amitriptyline HCl 50 MG Oral; Duration: 90 Days Active BD Disp Needle 25G X 1 ; Duration: 28 Days Not-Taking amLODIPine Besylate 10 MG Oral; Duration : 90 Days Active Celecoxib 100 MG Oral; Duration: 60 Days Active hydroCHLOROthiazide 25 MG Oral; Duration : 90 Days Active Cyanocobalamin 1000 MCG/ML Injection; Du ration: 28 Days Not-Taking hydroCHLOROthiazide 25 MG Oral; Duration : 90 Days Active Gabapentin 600 MG Oral; Duration: 60 Days Active Lisinopril 40 MG Oral; Duration: 90 Days Active Cyanocobalamin 1000 MCG/ML Injection; Du ration: 7 Days Not-Taking metFORMIN HCl 1000 MG Oral; Duration: 90 Days Active Budesonide-Formoterol Fumarate 160-4.5 MCG/ACT INHALE 2 PUFFS BY MOUTH TWICE DAILY FOR ASTHMA CONTROL Inhalation; Duration: 30 Days Active amLODIPine Besylate 5 MG PLEASE SEE LORENZO GALARZA FOR DETAILED DIRECTIONS Oral; Duration: 90 Days Active Rosuvastatin Calcium 20 MG Oral; Duratio n: 90 Days Active Rosuvastatin Calcium 20 MG TAKE 1 TABLET BY MOUTH EVERY DAY Oral; Duration: 90 Days Active Aspirin Low Dose 81 MG Oral; Duration: 9 0 Days Active tiZANidine HCl 4 MG Oral; Duration: 30 Days Active Ibuprofen 600 MG Oral; Duration: 8 Days Not-Taking LORazepam 0.5 MG Oral; Duration: 2 Days Not-Taking Ciclopirox Olamine 0.77 % 1 application Externally Twice a day to skin of feet including between the toes; Duration: 30 days Active Jardiance 10 MG Oral; Duration: 90 Days Active Budesonide-Formoterol Fumarate 160-4.5 MCG/ACT Inhalation; Duration: 30 Days Active FreeStyle Lancets - ; Duration: 90 Days Not-Taking FreeStyle Lite Test - In Vitro; Duration : 50 Days Not-Taking FreeStyle Lite Test - USE TO TEST FASTIN G BLOOD SUGAR ONCE A DAY In Vitro; Duration: 50 Days Active Omeprazole 20 MG Oral; Duration: 90 Days Active Albuterol Sulfate (2.5 MG/3ML) 0.083% Inhalation; Duration: 18 Days Active Lidocaine 5 % External; Duration: 20 Days Active DULoxetine HCl 30 MG Oral; Duration: 90 Days Active Ammonium Lactate 12 % External; Duration : 30 Days Active Ondansetron HCl 4 MG Oral; Duration: 5 Days Active Pantoprazole Sodium 40 MG TAKE 1 TABLET BY MOUTH EVERY DAY FOR 14 DAYS Oral; Duration: 14 Days Not-Taking Albuterol Sulfate HFA 108 (90 Base) MCG/ACT TAKE 2 PUFFS INHALATION 4 TIMES A DAY NEEDED FOR WHEEZING SPACE PUFFS 1 MINUTE APART. Inhalation; Duration: 25 Days Active Celecoxib 100 MG Oral; Duration: 90 Days Active amLODIPine Besylate 10 MG PLEASE SEE ATT ACHED FOR DETAILED DIRECTIONS Oral; Duration: 90 Days Active Clotrimazole-Betamethasone 1-0.05 % 1 application to affected area Externally Twice a day to affected areas on feet; Duration: 30 days 05/29/2025 Active FreeStyle [place] Lite w/Device ; Duration: 30 Days Active Meloxicam 15 MG Oral; Duration: 30 Days Active Meloxicam 15 MG PLEASE SEE ATTACHED FOR DETAILED DIRECTIONS Oral; Duration: 30 Days Active Trulicity 0.75 MG/0.5ML PLEASE SEE ATTAC HED FOR DETAILED DIRECTIONS Subcutaneous; Duration: 28 Days Not-Taking hydroCHLOROthiazide 25 MG TAKE 1 TAB BY MOUTH DAILY. TAKE WITH LISINOPRIL 40MG.-STOP LIS/HCTZ 20/25 Oral; Duration: 90 Days Active Immunizations Vaccine Route Administration Date Status Comme nts Influenza Unknown 05/11/2025 Administered Social History Tobacco Use: Social History Observation Description Date Details (start date - stop date) Never Smoker NA - NA Tobacco Control (Standard) Question Answer Notes Tobacco use: Nonsmoker Additional Findings: Tobacco non-user Current no nsmoker AUDIT-C (Standard) Question Answer Notes Did you have a drink contain ing alcohol in the past year? Yes How often did you have a dri nk containing alcohol in the past year? Declined to specify (0 point) How many drinks did you have on a typical day when you were drinking in the past year? Declined to specify (0 point) How often did you have six o r more drinks on one occasion in the past year? Declined to specify (0 point) Points 0 Interpretation Negative Problems Problem Type SNOMED Code ICD Code Onset Dates Problem Status W/U Status Risk Notes Problem Type 2 diabetes mellitus with peripheral angiopathy (201679393) Type 2 diabetes mellitus with diabetic peripheral angiopathy without gangrene (E11.51) Active confirmed Q7(A), Q8(2B), Q9(1B,2C) Vital Signs Heart Rate 71 /min 05/29/2025 Blood pressure diastolic 76 R mm Hg 05/29/2025 Height 6ft 2 in in 05/29/2025 Blood pressure systolic 140 mm Hg 05/29/2025 Weight 294 lbs 05/29/2025 BMI 37.74 kg/m2 05/29/2025 Procedures Procedure Date Ordered Date Performed Result Body Sit e 93618-ZGZLFRF NAIL, 6 OR MORE 07/27/2024 N/A 73190-OZDE SKIN LESIONS, OVER 4 07/27/2024 N/A Encounters Encounter Location Date Provider Diagnosis [address] [address] 07/27/2024 John Albrecht Type 2 diabetes mellitus with diabetic peripheral angiopathy without gangrene E11.51 ; Tinea unguium B35.1 ; Pain in right toe(s) M79.674 ; Pain in left toe(s) M79.675 and Tinea pedis of both feet B35.[address] [address] 05/29/2025 Amirah Cortes Type 2 diabetes mellitus with diabetic peripheral angiopathy without gangrene E11.51 ; Tinea unguium B35.1 ; Pain in right toe(s) M79.674 ; Pain in left toe(s) M79.675 ; Tinea pedis of both feet B35.3 ; Pain in left foot M79.672 ; Pain in left ankle and joints of left foot M25.572 ; Bursitis of intermetatarsal bursa of left foot M77.52 ; Metatarsalgia of left foot M77.42 ; Pain in right foot M79.671 ; Pain in right ankle and joints of right foot M25.571 ; Bursitis of intermetatarsal bursa of right foot M77.51 and Metatarsalgia, right foot M77.[address] [address] 05/29/2025 Amirah Cortes [address] [address] 10/30/2024 John Albrecht Assessments Encounter Date Diagnosis (ICD Code) Assessment Notes Treatment Notes Treatment Clinical Notes Section Notes 07/27/2024 Type 2 diabetes mellitus with diabetic peripheral angiopathy without gangrene (ICD-10 - E11.51) Q7(A), Q8(2B), Q9(1B,2C) 07/27/2024 Tinea unguium (ICD-10 - B35.1) 05/29/2025 Type 2 diabetes mellitus with diabetic peripheral angiopathy without gangrene (ICD-10 - E11.51) Q7(A), Q8(2B), Q9(1B,2C) 05/29/2025 Tinea unguium (ICD-10 - B35.1) 05/29/2025 Pain in right toe(s) (ICD-10 - M79.674) 07/27/2024 Pain in right toe(s) (ICD-10 - M79.674) 07/27/2024 Pain in left toe(s) (ICD-10 - M79.675) 05/29/2025 Pain in left toe(s) (ICD-10 - M79.675) 05/29/2025 Tinea pedis of both feet (ICD-10 - B35.3) 07/27/2024 Tinea pedis of both feet (ICD-10 - B35.3) 05/29/2025 Pain in left foot (ICD-10 - M79.672) 05/29/2025 Pain in left ankle and joints of left foot (ICD-10 - M25.572) 05/29/2025 Bursitis of intermetatarsal bursa of left foot (ICD-10 - M77.52) 05/29/2025 Metatarsalgia of left foot (ICD-10 - M77.42) 05/29/2025 Pain in right foot (ICD-10 - M79.671) 05/29/2025 Pain in right ankle and joints of right foot (ICD-10 - M25.571) 05/29/2025 Bursitis of intermetatarsal bursa of right foot (ICD-10 - M77.51) 05/29/2025 Metatarsalgia, right foot (ICD-10 - M77.41) Plan Of Treatment Pending Test Test Name Order Date 41145-[id number] NAIL, 6 OR MORE 07/27/2024 43203-DZCD SKIN LESIONS, OVER 4 07/27/20 24 Insurance Providers Payer Name Payer Address Payer Phone Subscriber Number Group Number Insured Name Patient Relationship to Insured Coverage Start Date Coverage End Date [facility] [employer] Claims [address] [place] [id number] Sergio Ordonez Self - patient is the insured Medical (General) History Medical History History ICD Code Arthritis Back,Hip,and Knee pain Diabetic High Blood Pressure Chicken pox Surgical History Surgery Date(Month/Year) knee replacement 2003 Hospitalization History Reason Date(Month/Year) [facility], Lungs, 05/10 [facility] ,Stomach issues 05/10
== END 2025-06-11 15:46 | disposition home or self-care (01) ==
LOC: HO.HOS 14:07
PROVIDERS: Visit Provider Orthopaedic Surgery
DX: M17.11 Unilateral primary osteoarthritis, right knee (principal)
CPT/HCPCS: 99214

== ENCOUNTER → 2025-06-11 14:07 | Outpatient (BNVA) | payer OTHER, SELFPAY | PROVIDERS: Visit Provider Orthopaedic Surgery | DX: M17.11 Unilateral primary osteoarthritis, right knee (principal) | CPT/HCPCS: 99212 ==